=== PATIENT | female | born 1940 | race Caucasian/White ===

== ENCOUNTER 2018-01-18 12:27 | Inpatient (IN) | payer MEDICARE, BC ==
[~2018-01-18] VITALS: Ht 160 cm; Wt 59.4 kg
[~2018-01-18 12:27] MED LIST: ASPIR 8181 M1 PO; CEPHALEXIN 500500 M3 PO; CIPROFLOXIN HC2.5 M1 OPHTHALMIC; IBUPROFEN 800800 M1 PO; MACROBID 100 M100 M1 PO; SYNTHROID100 MC1 PO; ZOCOR20 MG PO
[2018-01-18 12:31] VITALS: BP 143/57
[2018-01-18] MEDS ORDERED: TYLENOL EXTRA500 MG PO (12:38)
[2018-01-18 12:50] LABS: URINE BILIRUBIN NEGATIVE (Negative); URINE BLOOD NEGATIVE (Negative); URINE CLARITY CLEAR; URINE COLOR YELLOW; URINE GLUCOSE-RANDOM NEGATIVE (Negative); URINE KETONES 2+ (Negative); URINE LEUKOCYTES-REFLEX NEGATIVE (Negative); URINE NITRITE-REFLEX NEGATIVE (Negative); URINE PROTEIN NEGATIVE (Negative); URINE UROBILINOGEN 0.2 E.U./dl (0.2-1.0)
[2018-01-18 13:06] LABS: HEMATOCRIT 34.3 % (37.0-47.0); HEMOGLOBIN 11.3 gm/dL (12.0-15.0); MCH 30.2 pg (26.0-34.0); MCHC 32.9 g/dL (28.0-37.0); MCV 91.8 fL (80.0-100.0); MPV 8.3 fl. (7.2-11.1); NUCLEATED RBCS 0 /100WBC; PLATELET COUNT* 489 thou/uL (150-400); RBC 3.73 mil/uL (4.20-5.00); RDW-CV 12.5 % (10.5-14.5); WBC 19.5 thou/uL (4.0-11.0)
[2018-01-18 13:14] LABS: CALCIUM 8.7 mg/dL (8.5-10.1); CREATININE 0.9 mg/dL (0.6-1.3); POTASSIUM 4.3 mmol/L (3.5-5.1)
[2018-01-18 13:19] LABS: ALBUMIN 3.1 g/dL (3.4-5.0); TOTAL BILIRUBIN 0.5 mg/dL (<0.1-1.0); TOTAL PROTEIN 7.5 g/dL (6.4-8.2)
[2018-01-18 13:22] LABS: ABSOLUTE MONOCYTES 0.8 thou/uL (0.0-1.2); ABSOLUTE NEUTROPHILS 17.7 thou/uL (1.6-8.1); PLATELET ESTIMATE ADEQUATE
[2018-01-18 15:16] VITALS: BP 124/59
[2018-01-18 15:45] VITALS: BP 146/75
[2018-01-18 19:45] VITALS: BP 141/56
--- NOTE | 2018-01-18 20:05 | NUR ---
PATIENT ARRIVED FROM ER THIS AFTERNOON. PATIENT SETTLED TO ROOM. HISTORY, ASSESSMENT AND VITALS COMPLETED AND DOCUMENTED. PATIENT HAS HAD COMPLAINTS OF RLQ ABDOMINAL PAIN SINCE ARRIVAL, NO RELIEF WITH MORPHINE AND PARTIAL RELIEF PROVIDED WITH FENTANYL, DR AJ AWARE. PATIENT SEEN BY DR LUO THIS EVENING AND ORDERS FOR IR TO PLACE DRAIN IN AM RECEIVED, NURSING AIRCRAFT ARMAMENT MECHANIC JESS NOTIFIED OF NEED. PATIENT HAS FEVER AND CHILLS THIS EVENING, DR AJ NOTIFIED AND TYLENOL ORDER RECIEVED. PATIENT IS UP STANDBY TO BATHROOM WITH GOOD URINE OUTPUT. IV FLUIDS AND ANTIBIOTICS INFUSING ORDERED. WILL CONTINUE TO MONITOR.
[2018-01-18] MEDS ORDERED: TOPROL XL25 MG PO (20:14)
[2018-01-18 22:56] VITALS: BP 107/47
[2018-01-19] VITALS (11 sets, daily range): BP systolic 97–133; BP diastolic 36–52
--- NOTE | 2018-01-19 04:44 | NUR ---
PATIENT REMAINS ALERT AND ORIENTED X 4 BUT FORGETFUL AND NEEDS REMINDING WITH EACH INTERACTION WHY SHE IS HERE. IVF'S AND ANTIBIOTICS PER ORDERS. RECHECK ON TEMPERATURE DURING THE NIGHT WITHIN NORMAL LIMITS AFTER INTIATION OF ANTIBIOTICS AND TYLENOL. NPO STATUS MAINTAINED EXCEPT SIP OF WATER WITH ORAL MEDS. UP TO BR OR BSC WITH MIN TO CGA. MEDICATED FOR PAIN X 3 OF THIS WRITING TO GOOD EFFECT. CONTINUE TO MONITOR.
[2018-01-19 05:11] LABS: HEMATOCRIT 31.3 % (37.0-47.0); HEMOGLOBIN 10.1 gm/dL (12.0-15.0); MCH 30.1 pg (26.0-34.0); MCHC 32.1 g/dL (28.0-37.0); MCV 93.7 fL (80.0-100.0); MPV 8.8 fl. (7.2-11.1); RBC 3.34 mil/uL (4.20-5.00); RDW-CV 12.5 % (10.5-14.5); WBC 24.2 thou/uL (4.0-11.0)
[2018-01-19 05:13] LABS: ALBUMIN 2.4 g/dL (3.4-5.0); CALCIUM 7.8 mg/dL (8.5-10.1); POTASSIUM 4.2 mmol/L (3.5-5.1); TOTAL BILIRUBIN 0.5 mg/dL (<0.1-1.0); TOTAL PROTEIN 5.7 g/dL (6.4-8.2)
--- NOTE | 2018-01-19 05:49 | NUR ---
ID HERE THIS AM TO SEE PATIENT WITH REQUEST TO NOTIFY SURGERY TO SEE PATIENT PRIOR TO IR FOR ACUTE ABDOMEN. CALL TO DR. LUO AT THIS TIME WITH UPDATES ON PATIENT AND REQUEST FROM ID. DR. LUO TO SEE PATIENT EARLY AM. CONTINUE WITH PLANS FOR IR THIS AM.
[2018-01-19 09:12] LABS: APTT 37.9 Seconds (25.0-31.3); INR 1.2
--- NOTE | 2018-01-19 13:52 | NUR ---
DR LUO CALLED TO FOLLOW UP ON THE PT POST OP. PT PAIN IS A LITTLE BETTER AT THIS TIME BUT SHE IS REQUIRING O2 AT 2L AT THIS TIME AND WE WILL PUT HER ON CONTINUOUS PULSE OX AT THIS TIME. DR LUO STATED THAT THE PT SHOULD BE GIVEN TYLENOL FOR FEVER IT IS TO BE EXPECTED, NOTIFY PROVIDER IF OTHER VS ARE NOT STABLE. WILL PASS OF TO SPUD GRADER. PT RESTING IN BED AT THIS TIME, PAIN MEDS, ABX AND ANTI-NAUSEA PROVIDED AT THIS TIME.
--- NOTE | 2018-01-19 18:30 | NUR ---
DR AJ WANTS PT MONITORED ON TELE. PT WILL GO TO ROOM 233 AT SHIFT CHANGE SO REPORT DOES NOT HAVE TO BE GIVEN TWICE. THIS RN WILL GIVE REPORT TO ONCOMING RN AT THAT TIME. PT PAIN BETTER CONTROLLED AT THIS TIME AND PT IS RESTING. WILL CONTINUE TO ASSESS AND MONITOR.
--- NOTE | 2018-01-19 19:46 | NUR ---
PT TAKEN TO RM 233. REPORT GIVEN TO ION REID. PT DID NOT TOLERATE RA ON WAY UP TO THE UNIT SO PT REMAINS ON 2L PER NC. FRANKLIN NOTIFIED THAT PHYSICIAN STATED INCREASED TEMP SHOULD BE TREATED WITH TYLENOL AND DOES NOT NEED TO HAVE PHYSICIAN NOTIFIED DURING SHIFT UNLESS OTHER VS ALSO ARE DECLINING. PT WENT WITH PT TO NEW ROOM AND PT IS SETTLED. WILL SIGN OFF CARE AT THIS TIME.
[2018-01-20] VITALS (7 sets, daily range): BP systolic 110–161; BP diastolic 43–71
[2018-01-20 05:14] LABS: HEMATOCRIT 30.5 % (37.0-47.0); HEMOGLOBIN 9.9 gm/dL (12.0-15.0); MCH 30.2 pg (26.0-34.0); MCHC 32.4 g/dL (28.0-37.0); MCV 93.1 fL (80.0-100.0); MPV 8.7 fl. (7.2-11.1); RBC 3.27 mil/uL (4.20-5.00); RDW-CV 13.1 % (10.5-14.5)
[2018-01-20 05:40] LABS: ALBUMIN 2.1 g/dL (3.4-5.0); ALKALINE PHOSPHATASE 68 U/L (46-116); ANION GAP 13 mmol/L (7-16); BUN 19 mg/dL (7-18); CALCIUM 7.8 mg/dL (8.5-10.1); CHLORIDE 108 mmol/L (98-107); CO2 20 mmol/L (21-32); CREATININE 0.9 mg/dL (0.6-1.3); GLUCOSE 92 mg/dL (70-99); MAGNESIUM 2.2 mg/dL (1.8-2.4); POTASSIUM 3.8 mmol/L (3.5-5.1); SGOT 22 U/L (15-37); SGPT 12 U/L (30-65); SODIUM 141 mmol/L (136-145); TOTAL BILIRUBIN 0.3 mg/dL (<0.1-1.0); TOTAL PROTEIN 6.2 g/dL (6.4-8.2); TROPONIN-I LEVEL <0.06 ng/mL (<0.06)
--- NOTE | 2018-01-20 06:11 | NUR ---
TRANSFERRED TO RM 233. RECEIVED FROM [facility] NOD. PT A&OX4 BUT FORGETFUL. VSS. PHYSICAL ASSESSMENT COMPLETED AND CHARTED. PT ON O2 VIA NC AT 2L WITH 93% O2 SAT. PT TRACING SR/ST ON TELE. PT COMPLAINED OF POST OP SITE PAIN WITH PAIN SCALE OF 10/10-PAIN MEDS GIVEN PER MAR WITH PARTIAL RELIEF. WITH ABDMINAL DRAIN-NO OUTPUT NOTED. MAINTAINED ON NPO. HOURLY ROUNDING OBSERVED. CALL LIGHT WITHIN REACH.
--- NOTE | 2018-01-20 08:00 | NUR ---
PT RESTING IN BED, APPEARS ALERT O X 3-4 FORGETFUL, ABDOMEN SL DISTENDED, HAS ABDOMINAL DRAIN. C/O ABDOMINAL PAION. HAS IVF, IS NPO, DR PATE HERE TO SEE. HAS ABDOMINAL DRAINWITH BAG, , DOES NOT APPER TO HAVE ANY DRAINAGE
--- NOTE | 2018-01-20 10:28 | EKG ---
[place] [address] ELECTROCARDIOGRAM REPORT Name: Jamie CALLE Room: [place] [address] ADM IN [facility].#: [id number] Admission: 01/18/18 Attend Phys: Henry Tovar, Discharge: Date of : 42 Report #: [id number] THIS REPORT FOR: //name// [facility] ED Test Date: 2018-01-18 Test Time: 12:59:12 Pat Name: Jamie CALLE Department: Room: [facility] Gender: F Kaiawhina Kohanga Reo: Cecilia BURNHAM : 1940 Requested By: Jazmyn Castro Order Number: [id number] MD: Wes Moctezuma Measurements Intervals [place] Rate: 77 P: 67 NC: 133 QRS: 16 QRSD: 115 T: 36 QT: 453 QTc: 513 Interpretive Statements Sinus rhythm Occasional pvc's Nonspecific intraventricular conduction delay Compared to ECG 11/16/2015 23:27:33 Ventricular premature complex(es) now present Electronically Signed On 01-20-2018 10:28:11 CDT by Wes Moctezuma [email or web address] <ELECTRONICALLY SIGNED> By: Wes Moctezuma MD, [facility] 01/20/18 1028 1259 1259 Wes Moctezuma MD, [facility] /EPI
--- NOTE | 2018-01-20 10:55 | CON ---
[address] [address] CONSULTATION Name: Jamie CALLE Room: [place] [address] ADM IN .R.#: [id number] Admission: 01/18/18 Attend Phys: Henry Tovar, Discharge: Date of : 42 Report #: [id number] THIS REPORT FOR: //name// CC: Tyrone Tovar DATE OF SERVICE: 01/19/2018 ATTENDING PHYSICIAN: Dr. Tovar. REASON FOR CONSULTATION: Abdominal abscess. HISTORY OF PRESENT ILLNESS: A 77-year-old white woman admitted through the Emergency Room with right lower abdominal quadrant pain. She does not remember for how long she had this problem. In the Emergency Room, a CT scan of abdomen and pelvis was obtained and she is diagnosed to have an intra-abdominal abscess. The patient has been scheduled to have the intra-abdominal abscess drained by interventional radiologist. PAST MEDICAL HISTORY: The patient is a rather poor historian and she is not very helpful with past medical history. She starts by telling me that she thinks she is 71 years old when actually she is 77. DRUG ALLERGIES: None listed. MEDICATIONS: The patient is on treatment with Flagyl 500 mg IV every 8 hours, Zosyn 3.375 g IV every 8 hours, Levaquin 500 mg IV daily, p.r.n. acetaminophen, fentanyl, levothyroxine 0.1 mg p.o. daily, ondansetron 4 mg IV q.4h. p.r.n., morphine sulfate p.r.n. SOCIAL HISTORY: See H and P. FAMILY HISTORY: See H and P. REVIEW OF SYSTEMS: Essentially noncontributory. PHYSICAL EXAMINATION: GENERAL: A well-developed, mildly ill-appearing woman. VITAL SIGNS: Temperature 102.3 down to 98.5 today, pulse 104-86 per minute, respirations 18, BP 141/56 down to 107/47, O2 saturation 97% on room air. HEENMT: Head normocephalic, atraumatic. Pupils reactive. Mouth: Moist mucous membranes. NECK: Supple, no thyromegaly. LUNGS: Clear to auscultation. BREASTS: Deferred. HEART: S1, S2. [place] [address] CONSULTATION Name: Jamie CALLE Room: [address] IN [facility]#: [id number] Admission: 01/18/18 Attend Phys: Henry Tovar, Discharge: Date of : 42 Report #: [id number] ABDOMEN: Significantly tender throughout with rebound tenderness and decreased bowel sounds. I suspect the patient may be a surgical candidate. PELVIC AND RECTAL: Deferred. EXTREMITIES: No clubbing, cyanosis. NEUROLOGIC: Grossly within normal limits. LABORATORY DATA: Sodium 141, potassium 4.2, CO2 of 21, BUN 15, creatinine 1, glucose 68. Albumin 3.1 g/dL down to 2.4 g/dL today. White blood cell count on admission 19,500, today is 24,200, hemoglobin on admission 11.3 down to 10.1 g/dL today, platelets 413,000. White blood cell count differential revealed 88% segmented neutrophils. Urinalysis revealed 2+ ketones, otherwise negative. MICROBIOLOGY DATA: Blood cultures were obtained and they remain negative at the time of this dictation. RADIOLOGY EVALUATION: CT scan of abdomen and pelvis reveals a right lower abdominal quadrant abscess, possibly related to sigmoid colon diverticulitis. No evidence of appendicitis. ASSESSMENT: 1. Suspect acute abdomen with intra-abdominal abscess, question perforated viscus. 2. Fever. 3. Worsening leukocytosis. 4. Question cognitive impairment. SUGGESTIONS: Recommend continued treatment with Zosyn and Flagyl. Discontinue Levaquin. She needs surgical consultation prior to interventional radiology's intervention. She has got rebound tenderness throughout, which makes me suspect there may be some peritonitis. Dr. Tovar, thank you for requesting my suggestions. <ELECTRONICALLY SIGNED> By: Hermes Robertson MD 01/20/18 1055 0537 1830Hermes Robertson MD /nt
[2018-01-21 04:39] VITALS: BP 145/55
--- NOTE | 2018-01-21 05:14 | NUR ---
ASSUMED CARE OF PT AFTER REPORT AT 1930. PT A&OX2- NOT ORIENTED TO TIME & SITUATION. VSS. PHYSICAL ASSESSMENT COMPLETED AND CHARTED. PT ON NC AT 2L WITH 93% O2 SAT. PT TRACING SR/ST ON TELE. PT UP WITH 1 ASSIST TO COMMODE. PT COMPLAINED OF SOA.LUNG SOUNDS WITH WHEEZES. PT CANNOT VOID-BLADDER SCAN SHOWS [address] TREVINO INFORMED WITH NEW ORDERS. INSERTED STOUT TO DD WITH 750CC OUTPUT. STARTED ON BREATHING TREATMENTS. CXR DONE. PT WITH ABDOMINAL DRAIN WITH NO OUTPUT NOTED.PT C/O OF RIGHT LOWER QUADRANT ABDOMINAL PAIN WITH PAIN SCALE OF 8/10-PAIN MEDS GIVEN PER MAR MAINTAINED ON NPO.CALL LIGHT WITHIN REACH.
[2018-01-21 11:54] VITALS: BP 174/81
--- NOTE | 2018-01-21 16:57 | NUR ---
SW met with pt to complete initial assessment, introduce self, and SW role. Pt lives at home with . Pt also has supportive sons. Pt said she was not feeling well and in pain. Pt might have oxygen needs at dc. SW to continue to follow to assist with safe dc planning.
[2018-01-21 20:00] VITALS: BP 150/41
[2018-01-22] VITALS: BP 134/55
[2018-01-22 04:00] VITALS: BP 134/55
--- NOTE | 2018-01-22 05:18 | NUR ---
ASSUMED PT CARE AT 1930, PT IS A&OX2 PERSON AND TORSTEN, PT IS VERY FORGETFUL, KEEPS ASKING WHY SHE IS HERE. PT IS TRACIGN SNR ON THE MONTIOR, ON 2L NC SATTING MID TO HIGH 90'S. PT HAS A STOUT TO DD, DRAINGING DARK YELLOW URINE. PT IS C/O PAIN TO ABD, PRN PAIN MEDICATIONS GIVEN PER JUL. RLQ DRAIN IN PLACE, VERY LITTLE OUTOUT. BED IN LOW POSITION, CALL LIGHT IN REACH, BED ALARM ON, YELLOW ARM BAND AND SOCKS IN PLACE. HOURLY ROUNDING COMPLETED FOR PT SAFETY.
[2018-01-22 08:38] VITALS: BP 151/64
[2018-01-22 12:17] VITALS: BP 155/63
[2018-01-22 20:00] VITALS: BP 168/61
[2018-01-23] VITALS (7 sets, daily range): BP systolic 131–155; BP diastolic 49–83
--- NOTE | 2018-01-23 00:11 | NUR ---
PATIENT HAVING INCREASED CONFUSION, RESTLESSNESS, AND IMPULSIVENESS. ATTEMPTED TO REORIENT PATIENT MULTIPLE TIMES WITH NO SUCCESS. PATIENT CONTINUES TO BELIEVE SHE IS IN [place] AND HER HAS LEFT HER. ORDERS RECEIVED FOR LORAZEPAM AND ADMINISTERED. PATIENT REMAINS RESTLESS AT THIS TIME. FALL PRECAUTIONS IN PLACE. CALL LIGHT WITHIN REACH.
--- NOTE | 2018-01-23 12:14 | NUR ---
CONTINUE TO FOLLOW, MET WITH PT. SHE IS ALERT AND TALKATIVE TODAY. STATING SHE WANTS TO GET UP AND 'GET MOVING.' HAS THERAPY ORDERS. PT STATES SHE PLANS TO RETURN HOME WITH HER SPOUSE. HASN'T HAD HH BEFORE. UNKNOWN HOW LONG PT WILL HAVE DRAIN, POSSIBLE NEED FOR HH. WILL FOLLOW
--- NOTE | 2018-01-23 19:31 | NUR ---
RECEIVED REPORT FROM LORI LEMON. ASSUMED CARE OF PT AROUND 0730. PT ALERT TO SELF ONLY, VERY CONFUSED, DOES NOT KNOW WHY SHE IS HERE. VSS. O2 SAT 97% ON 3L PER NC. PETROLEUM SAMPLER IN PLACE TRACING SR WITH PAC'S THIS SHIFT WITH NO CHANGES. PT REPORTED RLQ ABDOMINAL PAIN THIS SHIFT THAT WAS MANAGED WITH IV PAIN MEDICATION TO PT RELIEF. DRAIN IN PLACE TO RLQ - 25ML OUT.STOUT IN PLACE TO DD, LIGHT YELLOW URINE DRAINING. PT ON CLD - TOLERATING, BUT HAS NOT HAD MUCH APPETITE FOR ANYTHING TODAY. BELLY SOFT WITH ACTIVE BS IN ALL 4 QUADRANTS. PT BEING TURNED Q2HRS FOR COMFORT. PT ABLE TO GET UP TO BESIDE CHAIR WITH THERAPY THIS SHIFT. AND OTHER FRIENDS AT BEDSIDE OFF AND ON THROUGHOUT SHIFT. IV'S INTACT AND SALINE LOCKED. PT SEEN BY SURGERY THIS SHIFT - PLAN IS TO LEAVE DRAIN IN PLACE AT DISCHARGE FOR 1 WEEK. PT CURRENTLY SLEEPING. FALL PRECAUTIONS IN PLAC. CALL LIGHT IS WITHIN REACH. HOURLY ROUNDING PERFORMED.
[2018-01-24] VITALS: BP 144/49
[2018-01-24 04:00] VITALS: BP 152/64
--- NOTE | 2018-01-24 04:19 | NUR ---
PATIENT PARTIALLY PROGRESSING TOWARDS GOALS: PATIENT REMAINS ORIENTED TO SELF AND PLACE ONLY. PATIENT HAS RESTED A MAJORITY OF THE SHIFT. PATIENT HAD C/O PAIN IN RIGHT LOWER ABD, HOWEVER WOULD BE ASLEEP SHORTLY AFTER REQUESTING PAIN MEDICATION. FALL PRECAUTIONS REMAIN IN PLACE. DRAIN TO RLQ WITH MINIMAL OUTPUT. STOUT TO DD. HOURLY ROUNDING OBSERVED. CALL LIGHT WITHIN REACH
[2018-01-24 04:23] LABS: HEMATOCRIT 34.6 % (37.0-47.0); HEMOGLOBIN 11.3 gm/dL (12.0-15.0); MCH 29.3 pg (26.0-34.0); MCHC 32.8 g/dL (28.0-37.0); MCV 89.3 fL (80.0-100.0); MPV 8.1 fl. (7.2-11.1); NUCLEATED RBCS 0 /100WBC; PLATELET COUNT* 607 thou/uL (150-400); RBC 3.87 mil/uL (4.20-5.00); RDW-CV 12.9 % (10.5-14.5); WBC 14.1 thou/uL (4.0-11.0)
[2018-01-24 04:49] LABS: CALCIUM 7.9 mg/dL (8.5-10.1); CREATININE 0.7 mg/dL (0.6-1.3); POTASSIUM 3.1 mmol/L (3.5-5.1)
[2018-01-24 05:41] LABS: ABSOLUTE EOSINOPHILS 0.4 thou/uL (0.0-0.7); ABSOLUTE MONOCYTES 1.6 thou/uL (0.0-1.2); ABSOLUTE NEUTROPHILS 9.2 thou/uL (1.6-8.1); ANISOCYTOSIS 1+; PLATELET ESTIMATE INCREASED; POIKILOCYTOSIS 1+
[2018-01-24 08:00] VITALS: BP 152/79
[2018-01-24 10:09] VITALS: BP 152/79
--- NOTE | 2018-01-24 10:21 | NUR ---
ASSUMED CARE OF PT AT 0730. PT RESTING IN BED. PT A&0X4, FORGETFUL AND CONFUSED AT TIMES. DEMENTIA NOTED. PT STATES SHE IS READY TO GO HOME. PT TRACING SR ON THE AUTOMATIC DRILL OPERATOR. ON 3L NC SAT UPPER 90'S. PT DENIES ANY PAIN OR SHORTNESS OF BREATH AT THIS TIME. STOUT TO DEPENDENT DRAINAGE. PT UP WITH 1 BSC. PT GOAL FOR TODAY IS TO REPLACE MAGNESIUM AND POTASSIUM PER ELECTROLYTE PROTOCOL, WORK WITH PT AND OT, ADVANCE DIET TOLERATED AND MANAGE PAIN, TITRATE OFF OXYGEN AND REMOVE STOUT CATHETER PRIOR TO DC. POSSIBLE DISCHARGE HOME THIS AFTERNOON. AM ASSESSMENT CHARTED. MEDICATIONS PER JUL. PT REPOSITIONS SELF. HOURLY ROUNDING OBSERVED. BED IN LOW POSITION. CALL LIGHT WITHIN REACH. WILL CONTINUE PLAN OF CARE.
[2018-01-24] MEDS ORDERED: AUGMENTIN 875-1 EACH PO (11:16)
[2018-01-24] MEDS ORDERED: PROTONIX40 M1 PO (11:21)
--- NOTE | 2018-01-24 13:09 | NUR ---
PT HAD FOLLOW UP KUB THIS AM- SHOWING IMPROVING ILEUS. PT DIET ADVANCED AND TOLERATING SOLD FOODS FAIR. PT WORKED WITH PHYSICAL AND OCCUPATIONAL THERAPY TODAY-TOLERATED WELL. ORDERS RECEIVED TO CONSULT REHAB- REHAB ABLE TO ACCEPT PT TODAY. DISCHARGE ORDERS RECEIVED. DISCHARGE INSTRUCTIONS, CARE NOTES, SCRIPTS AND FOLLOW UP APPTS GIVEN TO PT. PT COMMUNICATES UNDERSTANDING OF DISCAHRGE TEACHING. IV'S AND COTTON PICKER REMOVED. STOUT REMOVED. REPORT CALLED TO ION YOUNG. WILL TRANSPORT PT UP TO REHAB VIA WHEELCHAIR, CHART AND ALL BELONGINGS WHEN BED IS READY.
--- NOTE | 2018-01-24 13:14 | NUR ---
Nutrition: Pt assessed for LOS. Noted dementia. Diet advanced to low fiber. Alb 2.1, prealb 7.8. Wt stable, at 131#. Pt was busy with staff at time of attempted visit, 12:40. Appears at low nutritional risk at this time.
--- NOTE | 2018-01-24 13:50 | NUR ---
ORDERS NOTED FOR DC AND REHAB CONSULT. DISCUSSED WITH MEENA/REHAB LIASON. PT HAS BEEN ACCEPTED TO INPT REHAB TODAY. UPDATED PT AND SPOKE WITH SPOUSE OVER THE PHONE. BOTH IN AGREEMENT. ORDERS FAXED TO REHAB. THEY WILL CONTACT NURSE WHEN READY FOR REPORT AND TO ACCEPT PT
--- NOTE | 2018-03-03 10:19 | CON ---
[address] [address] CONSULTATION Name: BALDOMERO CALLE Room: [address] IN M.R.#: [id number] Admission: 01/18/18 Attend Phys: Henry Tovar, Discharge: 01/24/18 Date of : 42 Report #: [id number] THIS REPORT FOR: //name// CC: Tyrone Tovar REASON FOR CONSULTATION: Evaluation and recommendations regarding post-acute rehabilitation after acute hospitalization. Please note, the patient was deemed appropriate for rehabilitation prior to the consultation being received. Therefore, consultation was not completed as it would be redundant to the history and physical as well as the plan of care. <ELECTRONICALLY SIGNED> By: Lena Abel DO 03/03/18 1019 1619 [id number] Abel DO /nt
--- NOTE | 2018-03-06 15:30 | CON ---
[address] [address] CONSULTATION Name: BALDOMERO CALLE Room: [address] IN .R.#: [id number] Admission: 01/18/18 Attend Phys: Henry Tovar, Discharge: 01/24/18 Date of : 42 Report #: [id number] THIS REPORT FOR: //name// CC: Tyrone Tovar CHIEF COMPLAINT: Abdominal pain. HISTORY OF PRESENT ILLNESS: The patient is a 77-year-old pleasant lady who presented with complaints of worsening lower abdominal pain, especially in the right lower quadrant that she has been having for the last few days. She has been having intermittent episodes of lower abdominal pain for the last few months. The patient has had a colonoscopy done about 2-3 years ago and was said to be normal. She has a history of coronary artery disease and has hypertension. PAST MEDICAL HISTORY: History of coronary artery disease, history of stent placements, has [address]; hypertension, hyperlipidemia. PAST SURGICAL HISTORY: None significant. CURRENT MEDICATIONS: 1. Aspirin. 2. Simvastatin. 3. Levothyroxine. 4. Metoprolol. 5. Alprazolam. REVIEW OF SYSTEMS: CONSTITUTIONAL: Has chills. Denies any fever, lethargic. HEENT: She denies any headache or throat pain. CARDIOVASCULAR: Denies any chest pain or palpitation. RESPIRATORY SYSTEM: Denies any shortness of breath on exertion, wheezing or cough. GASTROINTESTINAL: As noted in HPI. GENITOURINARY: Denies any urinary symptoms. SKIN: Denies any ulcers, skin color changes or lesions. NEUROLOGICAL: Denies any numbness or tingling. PHYSICAL EXAMINATION: GENERAL: The patient appears to be in mild discomfort. HEENT: She is normocephalic, atraumatic. She is anicteric. CARDIOVASCULAR: Sounds are regular in rate and rhythm. No murmurs or added sounds. RESPIRATORY: Breath sounds are bilaterally equal and clear to auscultation. ABDOMEN: Soft. There is moderate to severe tenderness in the right lower quadrant and localized rebound tenderness in [place] [address] CONSULTATION Name: BALDOMERO CALLE Room: [address] IN [facility].#: [id number] Admission: 01/18/18 Attend Phys: Henry Tovar, Discharge: 01/24/18 Date of : 41 Report #: [id number] generalized tenderness noted. No guarding. EXTREMITIES: No cyanosis or pedal edema. LABORATORY DATA: White cell count is 19.5, hemoglobin is 7.3. BUN and creatinine are normal. Liver function tests are normal. CT scan of the abdomen and pelvis that was done shows a 6.2 x 6.1 x 6.5 cm abscess in the right lower quadrant region and appears to be related to the sigmoid colon. The appendix appears normal, it is very close to the tubo-ovarian structures, but is less likely to be originating from this. ASSESSMENT AND PLAN: The patient is a 77-year-old female who most likely has a diverticular abscess. It is of significant size. The patient is currently on Levaquin, Flagyl and Zosyn. We will consult Interventional Radiology for IR-guided drainage. The patient will need to be continued on antibiotics. Once her infection is well controlled, she will need an elective surgical resection of her sigmoid colon. I explained to her and her family about the plan of care and they showed understanding. <ELECTRONICALLY SIGNED> By: Surendra Palomo MD 03/06/18 1530 1831 [id number] Palomo MD /nt
== END 2018-01-24 14:10 | DRG 871 ==
LOC: M.ERS 12:27 → M.TBA-ER 14:39 → M.2W 14:39 → M.ORTHSURG 15:48 → M.2W 01-19 19:25
PROVIDERS: Personal Emergency Response Attendant; Radiology Vascular & Interventional Radiology; Surgery; ADMIT Family Medicine
PROC: 0W9G30Z Drainage of Peritoneal Cavity with Drainage Device, Percutaneous Approach (ICD-10-PCS; principal; 2018-01-19)
DX: A41.9 Sepsis, unspecified organism (principal); G93.40 Encephalopathy, unspecified; J18.9 Pneumonia, unspecified organism; K57.80 Diverticulitis of intestine, part unspecified, with perforation and abscess without bleeding; K56.7 Ileus, unspecified; E78.00 Pure hypercholesterolemia, unspecified; E78.5 Hyperlipidemia, unspecified; I25.10 Atherosclerotic heart disease of native coronary artery without angina pectoris; I10 Essential (primary) hypertension; E87.70 Fluid overload, unspecified; E03.9 Hypothyroidism, unspecified; Z79.899 Other long term (current) drug therapy; Z79.82 Long term (current) use of aspirin; Z95.5 Presence of coronary angioplasty implant and graft

== ENCOUNTER 2018-01-24 13:12 | Inpatient (IN) | payer MEDICARE, BC ==
[~2018-01-24] VITALS: Ht 160 cm; Wt 57.2 kg
[~2018-01-24 13:12] MED LIST changes: +AUGMENTIN 875-1 EACH PO; +PROTONIX40 M1 PO; +TOPROL XL25 MG PO; +TYLENOL EXTRA500 MG PO
[2018-01-24 14:10] VITALS: BP 121/64
[2018-01-24 20:00] VITALS: BP 152/65
[2018-01-25 03:57] LABS: HEMATOCRIT 30.9 % (37.0-47.0); HEMOGLOBIN 10.5 gm/dL (12.0-15.0); MCH 30.6 pg (26.0-34.0); MCHC 34.1 g/dL (28.0-37.0); MCV 89.7 fL (80.0-100.0); MPV 7.5 fl. (7.2-11.1); RBC 3.44 mil/uL (4.20-5.00); RDW-CV 12.6 % (10.5-14.5); WBC 13.4 thou/uL (4.0-11.0)
[2018-01-25 04:16] LABS: CALCIUM 7.4 mg/dL (8.5-10.1); CREATININE 0.7 mg/dL (0.6-1.3); POTASSIUM 4.1 mmol/L (3.5-5.1)
[2018-01-25 08:19] VITALS: BP 137/71
[2018-01-25 19:40] VITALS: BP 124/55
[2018-01-26 08:07] VITALS: BP 117/57
[2018-01-26 19:50] VITALS: BP 136/61
[2018-01-27 04:29] LABS: HEMATOCRIT 31.5 % (37.0-47.0); HEMOGLOBIN 10.4 gm/dL (12.0-15.0); MCHC 33.1 g/dL (28.0-37.0); MCV 90.7 fL (80.0-100.0); MPV 8.8 fl. (7.2-11.1); RBC 3.47 mil/uL (4.20-5.00); RDW-CV 12.8 % (10.5-14.5); WBC 22.9 thou/uL (4.0-11.0)
[2018-01-27 04:48] LABS: ALBUMIN 2.2 g/dL (3.4-5.0); CALCIUM 7.7 mg/dL (8.5-10.1); CREATININE 0.6 mg/dL (0.6-1.3); MAGNESIUM 1.8 mg/dL (1.8-2.4); POTASSIUM 4.1 mmol/L (3.5-5.1); TOTAL BILIRUBIN 0.3 mg/dL (<0.1-1.0); TOTAL PROTEIN 5.4 g/dL (6.4-8.2)
[2018-01-27 08:00] VITALS: BP 132/68
[2018-01-27 19:45] VITALS: BP 124/46
[2018-01-28 07:52] LABS: HEMATOCRIT 30.1 % (37.0-47.0); HEMOGLOBIN 9.8 gm/dL (12.0-15.0); MCH 29.8 pg (26.0-34.0); MCHC 32.5 g/dL (28.0-37.0); MCV 91.5 fL (80.0-100.0); MPV 9.3 fl. (7.2-11.1); NUCLEATED RBCS 0 /100WBC; RBC 3.29 mil/uL (4.20-5.00); RDW-CV 12.9 % (10.5-14.5); WBC 16.9 thou/uL (4.0-11.0)
[2018-01-28 08:00] VITALS: BP 122/44
[2018-01-28 08:03] LABS: PLATELET COUNT* 394 thou/uL (150-400)
[2018-01-28 08:05] LABS: ALBUMIN 2.1 g/dL (3.4-5.0); CALCIUM 7.9 mg/dL (8.5-10.1); CREATININE 0.7 mg/dL (0.6-1.3); TOTAL BILIRUBIN 0.3 mg/dL (<0.1-1.0); TOTAL PROTEIN 5.3 g/dL (6.4-8.2)
[2018-01-28 08:35] LABS: ABSOLUTE EOSINOPHILS 0.3 thou/uL (0.0-0.7); ABSOLUTE LYMPHOCYTES 1.7 thou/uL (0.8-5.3); ABSOLUTE MONOCYTES 1.9 thou/uL (0.0-1.2)
[2018-01-28 08:36] LABS: LARGE PLATELETS OCCASIONAL; PLATELET ESTIMATE ADEQUATE; TOXIC GRANULATION Occasional
[2018-01-28 09:00] VITALS: BP 122/44
[2018-01-28 16:40] LABS: URINE BLOOD TRACE (Negative); URINE CLARITY CLEAR; URINE COLOR YELLOW; URINE GLUCOSE-RANDOM NEGATIVE (Negative); URINE KETONES TRACE (Negative); URINE LEUKOCYTES-REFLEX NEGATIVE (Negative); URINE NITRITE-REFLEX NEGATIVE (Negative); URINE PROTEIN 1+ (Negative); URINE SPECIFIC GRAVITY 1.015 (1.005-1.030); URINE UROBILINOGEN 0.2 E.U./dl (0.2-1.0)
[2018-01-28 16:43] LABS: ICTOTEST (BILI CONFIRMATORY) Negative (Negative); URINE BILIRUBIN 1+ (Negative)
[2018-01-28 19:40] VITALS: BP 123/49
[2018-01-29 03:33] LABS: HEMATOCRIT 30.3 % (37.0-47.0); HEMOGLOBIN 9.8 gm/dL (12.0-15.0); MCH 29.5 pg (26.0-34.0); MCHC 32.2 g/dL (28.0-37.0); MCV 91.6 fL (80.0-100.0); MPV 9.3 fl. (7.2-11.1); RBC 3.31 mil/uL (4.20-5.00); RDW-CV 13.1 % (10.5-14.5); WBC 16.4 thou/uL (4.0-11.0)
[2018-01-29 03:46] LABS: ALBUMIN 2.2 g/dL (3.4-5.0); CREATININE 0.7 mg/dL (0.6-1.3); MAGNESIUM 1.8 mg/dL (1.8-2.4); POTASSIUM 3.8 mmol/L (3.5-5.1); TOTAL BILIRUBIN 0.3 mg/dL (<0.1-1.0); TOTAL PROTEIN 6.3 g/dL (6.4-8.2)
[2018-01-29 08:03] VITALS: BP 105/51
[2018-01-29 19:55] VITALS: BP 128/54
[2018-01-30 08:26] VITALS: BP 109/57
[2018-01-30 20:10] VITALS: BP 123/60
[2018-01-31 08:03] VITALS: BP 136/58
[2018-01-31 20:09] VITALS: BP 128/51
[2018-02-01 08:00] VITALS: BP 129/56
[2018-02-01 20:00] VITALS: BP 130/46
[2018-02-02 07:30] VITALS: BP 112/64
[2018-02-02 19:00] VITALS: BP 116/47
[2018-02-03 07:15] VITALS: BP 113/49
[2018-02-03 20:00] VITALS: BP 113/59
[2018-02-04 04:24] LABS: ABSOLUTE BASOPHILS 0.1 thou/uL (0.0-0.2); ABSOLUTE EOSINOPHILS 0.4 thou/uL (0.0-0.7); ABSOLUTE LYMPHOCYTES 1.7 thou/uL (0.8-5.3); ABSOLUTE MONOCYTES 1.5 thou/uL (0.0-1.2); ABSOLUTE NEUTROPHILS 7.2 thou/uL (1.6-8.1); BASOPHILS 0.8 %; EOSINOPHILS 3.6 %; HEMATOCRIT 29.4 % (37.0-47.0); HEMOGLOBIN 9.8 gm/dL (12.0-15.0); LYMPHOCYTES 15.9 %; MCH 30.3 pg (26.0-34.0); MCHC 33.5 g/dL (28.0-37.0); MCV 90.4 fL (80.0-100.0); MONOCYTES 13.6 %; MPV 9.1 fl. (7.2-11.1); NUCLEATED RBCS 0 /100WBC; PLATELET COUNT* 657 thou/uL (150-400); POLYS 66.1 %; RBC 3.25 mil/uL (4.20-5.00); RDW-CV 13.7 % (10.5-14.5); WBC 10.9 thou/uL (4.0-11.0)
[2018-02-04 04:44] LABS: ALBUMIN 2.4 g/dL (3.4-5.0); CALCIUM 8.4 mg/dL (8.5-10.1); CREATININE 0.8 mg/dL (0.6-1.3); MAGNESIUM 1.9 mg/dL (1.8-2.4); POTASSIUM 4.6 mmol/L (3.5-5.1); TOTAL BILIRUBIN 0.2 mg/dL (<0.1-1.0); TOTAL PROTEIN 6.2 g/dL (6.4-8.2)
[2018-02-04 20:00] VITALS: BP 125/63
[2018-02-05 10:00] VITALS: BP 113/69
[2018-02-05 11:27] LABS: ALBUMIN 2.6 g/dL (3.4-5.0); CALCIUM 8.3 mg/dL (8.5-10.1); CREATININE 0.7 mg/dL (0.6-1.3); POTASSIUM 4.3 mmol/L (3.5-5.1); TOTAL BILIRUBIN 0.2 mg/dL (<0.1-1.0); TOTAL PROTEIN 6.4 g/dL (6.4-8.2)
[2018-02-05 12:04] LABS: ABSOLUTE BASOPHILS 0.1 thou/uL (0.0-0.2); ABSOLUTE EOSINOPHILS 0.2 thou/uL (0.0-0.7); ABSOLUTE LYMPHOCYTES 1.5 thou/uL (0.8-5.3); ABSOLUTE MONOCYTES 1.1 thou/uL (0.0-1.2); ABSOLUTE NEUTROPHILS 7.3 thou/uL (1.6-8.1); EOSINOPHILS 1.5 %; HEMATOCRIT 31.3 % (37.0-47.0); HEMOGLOBIN 10.5 gm/dL (12.0-15.0); LYMPHOCYTES 14.4 %; MCH 30.3 pg (26.0-34.0); MCHC 33.7 g/dL (28.0-37.0); MCV 90.1 fL (80.0-100.0); NUCLEATED RBCS 0 /100WBC; POLYS 72.1 %; RBC 3.48 mil/uL (4.20-5.00); RDW-CV 13.6 % (10.5-14.5); WBC 10.2 thou/uL (4.0-11.0)
[2018-02-05 12:08] LABS: PLATELET COUNT* 738 thou/uL (150-400)
[2018-02-05 20:00] VITALS: BP 108/55
[2018-02-06 07:30] VITALS: BP 119/53
[2018-02-06 11:59] LABS: URINE BILIRUBIN NEGATIVE (Negative); URINE BLOOD NEGATIVE (Negative); URINE CLARITY CLEAR; URINE COLOR STRAW; URINE GLUCOSE-RANDOM NEGATIVE (Negative); URINE KETONES TRACE (Negative); URINE LEUKOCYTES-REFLEX TRACE (Negative); URINE NITRITE-REFLEX NEGATIVE (Negative); URINE PROTEIN 1+ (Negative); URINE UROBILINOGEN 0.2 E.U./dl (0.2-1.0)
[2018-02-06 12:11] LABS: SQUAMOUS 4-10 Moderate /LPF (0-3); URINE WBC-REFLEX 0-5 Rare /HPF (0-5)
[2018-02-06 12:12] LABS: BACTERIA-REFLEX 1-9 Few /HPF (None Seen); MUCUS >6 Heavy strn/LPF (None Seen); URINE RBC 0-2 Rare /HPF (0-2)
[2018-02-06 12:16] LABS: CRYSTALS None Seen /LPF (None Seen); HYALINE CASTS 4-10 Moderate /LPF (None Seen)
--- NOTE | 2018-02-06 13:19 | H ---
[address] [address] HISTORY AND PHYSICAL Name: BALDOMERO CALLE Room: [address] IN [facility].#: [id number] Admission: 01/24/18 Attend Phys: Lena Abel, DO Discharge: Date of : 42 Report #: [id number] THIS REPORT FOR: //name// CC: Tyrone Abel DATE OF SERVICE: 01/24/2018 HISTORY OF PRESENT ILLNESS: The patient was admitted to inpatient rehabilitation to facilitate safe discharge home, status post-acute hospitalization RLQabcess, post drainage and encephalopathy. There have been no significant changes since the preadmission screening. Previous level of function was independent to modified independent with activities of daily living. Current level of function is minimum to moderate assistance depending on time of day, therapy. Wound care and daily medical needs are noted. Currently has a lew in place. Lives with her in an accessible house with 1 ELBA. ESTIMATED LENGTH OF STAY: 14-16 days with discharge disposition to the home setting with supportive family and an accessible home. PMH: HTN HLD DEMENTIA HYPOTHYROID PSH: cardiac stents Allergies: NKDA Medications: Reviewed reconciled and available in the [facility] Social History: social alochol, no tobacco or drug use ROS: 14 pt ROS is reviewed and negative except as mentioned in HPI Physical Exam: AO NAD VSS CV RRR Pulm symmetric inhalation ABD: RQ drain noted Neuro: 5/5 BLUE, BLLE MSK: no CCE [facility] [address] [place] [address] HISTORY AND PHYSICAL Name: BALDOMERO CALLE Room: 323-D ADM IN .R.#: [id number] Admission: 01/24/18 Attend Phys: Lena Abel DO Discharge: Date of : 42 Report #: [id number] Assessment: Debility with alterations in ADLS s/p drainage of RLQ abdominal abscess Acute Encephalopathy Plan: Admit to acute inpt rehab HP/POC completed HMS, PT, OT, NAMED ACCOUNT EXECUTIVE and CM to evaluate Team weekly <ELECTRONICALLY SIGNED> By: Lena Abel DO 02/06/18 1319 1129 [id number] Abel DO /nt
[2018-02-06 20:09] VITALS: BP 110/57
[2018-02-07 04:09] VITALS: BP 110/57
[2018-02-07 05:03] LABS: HEMATOCRIT 27.5 % (37.0-47.0); HEMOGLOBIN 9.3 gm/dL (12.0-15.0); MCH 30.6 pg (26.0-34.0); MCHC 33.9 g/dL (28.0-37.0); MCV 90.3 fL (80.0-100.0); MPV 8.6 fl. (7.2-11.1); RBC 3.04 mil/uL (4.20-5.00); RDW-CV 13.8 % (10.5-14.5); WBC 8.6 thou/uL (4.0-11.0)
[2018-02-07 05:42] LABS: ALBUMIN 2.5 g/dL (3.4-5.0); CREATININE 0.7 mg/dL (0.6-1.3); POTASSIUM 4.3 mmol/L (3.5-5.1); TOTAL BILIRUBIN 0.2 mg/dL (<0.1-1.0); TOTAL PROTEIN 5.9 g/dL (6.4-8.2)
[2018-02-07 08:24] VITALS: BP 102/58
[2018-02-07 20:00] VITALS: BP 102/41
[2018-02-08 08:00] VITALS: BP 112/57
[2018-02-08 20:20] VITALS: BP 125/56
[2018-02-09 08:30] VITALS: BP 109/49
[2018-02-09 20:00] VITALS: BP 121/46
[2018-02-10 03:07] VITALS: BP 110/57
[2018-02-10 04:49] LABS: HEMATOCRIT 28.2 % (37.0-47.0); HEMOGLOBIN 9.4 gm/dL (12.0-15.0); MCH 30.3 pg (26.0-34.0); MCHC 33.3 g/dL (28.0-37.0); MCV 90.9 fL (80.0-100.0); RBC 3.1 mil/uL (4.20-5.00); WBC 8.4 thou/uL (4.0-11.0)
[2018-02-10 05:08] LABS: CALCIUM 8.8 mg/dL (8.5-10.1); CREATININE 0.7 mg/dL (0.6-1.3); MAGNESIUM 2.2 mg/dL (1.8-2.4); POTASSIUM 4.4 mmol/L (3.5-5.1)
[2018-02-10 07:30] VITALS: BP 116/58
[2018-02-10 20:00] VITALS: BP 98/45
[2018-02-11 07:30] VITALS: BP 114/53
[2018-02-11 20:13] VITALS: BP 113/52
[2018-02-12 08:14] VITALS: BP 114/87
[2018-02-12 08:30] VITALS: BP 114/87
[2018-02-12] MEDS ORDERED: FLOMAX0.4 MG PO (11:56)
[2018-02-12] MEDS ORDERED: MELATONIN5 M1 PO (11:58)
[2018-02-12] MEDS ORDERED: METRO IV 5500 MG/100 IV (12:00)
[2018-02-12] MEDS ORDERED: CEFTRIAXON1 GM/50 M1 IV (12:01)
[2018-02-12] MEDS ORDERED: TRAMADOL 50 MG50 MG PO (12:07)
--- NOTE | 2018-03-03 10:19 | D ---
[facility] [address] [place] [address] DISCHARGE SUMMARY Name: BALDOMERO CALLE Room: [address] IN M.R.#: [id number] Admission: 01/24/18 Attend Phys: Lena Abel DO Discharge: 02/12/18 Date of : 42 Report #: [id number] THIS REPORT FOR: //name// CC: Tyrone Abel DISCHARGE DIAGNOSES: Debility, sepsis, encephalopathy and known abscess. DISCHARGE DISPOSITION: To acute medical floor for further evaluation, drainage of the abscess, continued IV antibiotics and possible colostomy. Rehabilitation potential is good. Full weightbearing. She will maintain the same diet. We will follow her during her acute stay. Should she need further rehabilitation, we will follow up on that. MEDICATIONS: Reviewed, reconciled by myself and are available in the MAR. DISCHARGE PHYSICAL EXAMINATION: GENERAL: Alert, oriented, no apparent distress. VITAL SIGNS: Reviewed and are stable. HEENT: Head atraumatic, normocephalic. Pupils equal, round, reactive. ABDOMEN: Soft, nontender, nondistended. NEUROLOGIC: Cranial nerves 2-12 are grossly intact with no focal neuro deficits, 5/5 strength in bilateral upper and lower extremities. SKIN: Warm and dry. No rashes or lesions noted. <ELECTRONICALLY SIGNED> By: Lena Abel DO 03/03/18 1019 1308 [id number] Abel DO /kev
== END 2018-02-12 13:40 | disposition home health service (06) | DRG 70 ==
LOC: M.REH 13:12
PROVIDERS: Family Medicine; Internal Medicine; Specialist; ADMIT Physical Medicine & Rehabilitation
PROC: 02HV33Z Insertion of Infusion Device into Superior Vena Cava, Percutaneous Approach (ICD-10-PCS; principal; 2018-02-07)
DX: G93.40 Encephalopathy, unspecified (principal); A41.9 Sepsis, unspecified organism; K57.00 Diverticulitis of small intestine with perforation and abscess without bleeding; K56.7 Ileus, unspecified; N13.30 Unspecified hydronephrosis; E46 Unspecified protein-calorie malnutrition; R53.81 Other malaise; E78.5 Hyperlipidemia, unspecified; E03.9 Hypothyroidism, unspecified; F03.90 Unspecified dementia, unspecified severity, without behavioral disturbance, psychotic disturbance, mood disturbance, and anxiety; K57.50 Diverticulosis of both small and large intestine without perforation or abscess without bleeding; I10 Essential (primary) hypertension; I25.10 Atherosclerotic heart disease of native coronary artery without angina pectoris; E78.00 Pure hypercholesterolemia, unspecified; D64.9 Anemia, unspecified; Z95.5 Presence of coronary angioplasty implant and graft; Z79.899 Other long term (current) drug therapy; Z79.82 Long term (current) use of aspirin; Z87.891 Personal history of nicotine dependence; Z68.22 Body mass index [BMI] 22.0-22.9, adult

== ENCOUNTER 2018-02-12 11:09 | Inpatient (IN) | payer MEDICARE, BC ==
[~2018-02-12] VITALS: Ht 157.5 cm; Wt 56.2 kg
--- NOTE | ~2018-02-12 | OP ---
[address] [address] OPERATIVE REPORT Name: BALDOMERO CALLE Room: [address] IN .R.#: [id number] Admission: 02/12/18 Attend Phys: Lyric Reed MD Discharge: Date of : 42 Report #: [id number] THIS REPORT FOR: //name// CC: Tyrone Reed DATE OF SERVICE: 02/13/2018 PREOPERATIVE DIAGNOSES: 1. Diverticulitis with abscess. 2. Right hydronephrosis. POSTOPERATIVE DIAGNOSES: 1. Diverticulitis with abscess. 2. Right hydronephrosis. PROCEDURES PERFORMED: 1. Cystoscopy with bilateral retrograde pyelograms. 2. Bilateral 6 x 24 double-J ureteral stent placement. SURGEON: Rafi Calle MD. INDICATION FOR PROCEDURE: The patient is a 77-year-old female with a history of diverticulitis and subsequent right-sided pelvic phlegmon versus abscess. CT imaging demonstrated the presence of associated grhj-jy-tkpwksaw right hydronephrosis. She presents today for exploratory laparotomy and drainage and/or excision of her pelvic mass. Protective ureteral stents were requested by Dr. Palomo with General Surgery. The risks of the procedure including the risks of bleeding, infection, damage to surrounding structures, need for additional procedures, and anesthetic risks were discussed with the patient and she wished to proceed. PROCEDURE IN DETAIL: The risks and benefits of surgery were discussed with the patient and she wished to proceed. Informed consent was obtained and the patient was transferred to the operating room where she was laid supine on the operating room table. After the induction of adequate general endotracheal anesthesia and the administration of appropriate preoperative antibiotics, the patient's legs were placed in a modified dorsal lithotomy position taking care to pad all pressure points and avoid any hyperextension or hyperflexion of her joints. The patient's genitalia were prepped and draped in the usual sterile fashion. A timeout was then performed to ensure correct patient and procedure. At this time, a 21-Lao cystoscope sheath with a 30-degree lens was lubricated and advanced under direct vision and irrigation through the urethra and into the bladder. Cystoscope was disarticulated and the bladder was drained. Cystoscopy was performed under direct vision and irrigation. The patient's ureteral orifices were found to be [place] [address] OPERATIVE REPORT Name: BALDOMERO CALLE Room: [address]#: [id number] Admission: 02/12/18 Attend Phys: Lyric Reed MD Discharge: Date of : 41 Report #: [id number] panendoscopy revealed no gross bladder wall pathology. There were no papillary bladder tumors or suspicious mucosal lesions identified. At this time, a Pollack catheter was placed in the patient's right ureteral orifice and a right retrograde pyelogram was performed. Contrast could be seen filling a strictured segment of distal ureter with mid and proximal mild to moderate hydroureteronephrosis. This is consistent with CT finding of the right-sided pelvic phlegmon versus abscess. A 0.038 ZIPwire was advanced into the right ureter and up into the kidney under fluoroscopic guidance. A 6 x 24 double-J ureteral stent was advanced over the wire and into position. The wire was withdrawn deploying the stent. A good coil of the stent was identified within the right renal pelvis under fluoroscopy and a good coil of the stent was identified within the bladder under direct vision with the cystoscope. Attention was then paid to the left side. The 5-Lao Pollack catheter was placed in the patient's left ureteral orifice and a left retrograde pyelogram was performed. Contrast could be seen filling the distal, mid, and proximal left ureter as well as the left collecting system. There were no filling defects or signs of obstruction on left retrograde pyelogram. A 0.038 ZIPwire was advanced up the left ureter until it was seen to coil within the kidney under fluoroscopy. A 6 x 24 double-J ureteral stent was then advanced over the wire and into position. The wire was withdrawn, deploying the stent. A good coil of the stent was identified within the left renal pelvis under fluoroscopy and a good coil of the stent was identified within the bladder under direct vision with the cystoscope. The cystoscope was removed and a 16-Lao Cosme catheter was lubricated and advanced into the bladder without difficulty. The catheter balloon was inflated with 10 mL of sterile water and placed to gravity drainage. The patient was then returned to supine position and turned over the care to anesthesia in preparation for the general surgical portion of the procedure. This concludes the urologic portion of the procedure. The patient tolerated the procedure well. COMPLICATIONS: None. ESTIMATED BLOOD LOSS: None. IV FLUIDS: Crystalloid. DRAINS: 1. Bilateral 6 x 24 double-J ureteral stent. 2. 16-Lao Cosme catheter per urethra. SPECIMENS: None. FINDINGS: 1. No gross bladder wall pathology. No papillary bladder tumors or suspicious mucosal lesions. 2. Right retrograde pyelogram demonstrating a distal ureteral narrowing [address] [address] OPERATIVE REPORT Name: ALVABALDOMERO DONNELLY Room: [address] IN [facility]#: [id number] Admission: 02/12/18 Attend Phys: Lyric Reed MD Discharge: Date of : 42 Report #: [id number] consistent with external compression from the pelvic phlegmon versus abscess. Mid and proximal hydroureteronephrosis noted. 3. Right 6 x 24 double-J ureteral stent in good position by fluoroscopy and direct vision. 4. Normal left retrograde pyelogram. 5. Left 6 x 24 double-J ureteral stent in good position by fluoroscopy and direct vision. By: [id number] Calle MD /nt
--- NOTE | ~2018-02-12 | EKG ---
[place] [address] ELECTROCARDIOGRAM REPORT Name: BALDOMERO CALLE Room: [address] ADM IN M.R.#: [id number] Admission: 02/12/18 Attend Phys: Lyric Reed MD Discharge: Date of : 42 Report #: [id number] THIS REPORT FOR: //name// [facility] Test Date: 2018-02-13 Test Time: 05:32:22 Pat Name: BALDOMERO CALLE Department: Room: [address] Gender: F Associate Vice President: : 1940 Requested By: Lyric Reed Order Number: [id number] Reading MD: Measurements Intervals [place] Rate: 82 P: 39 ND: 148 QRS: 40 QRSD: 101 T: 65 QT: 399 QTc: 466 Interpretive Statements Sinus rhythm Atrial premature complex Anteroseptal infarct, age indeterminate Compared to ECG 01/18/2018 12:59:12 Atrial premature complex(es) now present Myocardial infarct finding now present Intraventricular conduction delay no longer present [email or web address] By: 0532 0532 Epiphany Epiphany, /EPI
[2018-02-12] MEDS ORDERED: FLOMAX0.4 MG PO (11:56)
[2018-02-12] MEDS ORDERED: MELATONIN5 M1 PO (11:58)
[2018-02-12] MEDS ORDERED: METRO IV 5500 MG/100 IV (12:00)
[2018-02-12] MEDS ORDERED: CEFTRIAXON1 GM/50 M1 IV (12:01)
[2018-02-12] MEDS ORDERED: TRAMADOL 50 MG50 MG PO (12:07)
[2018-02-12 14:46] VITALS: BP 102/42
[2018-02-12 20:00] VITALS: BP 117/39
[2018-02-12 23:45] VITALS: BP 109/55
[2018-02-13 04:00] VITALS: BP 117/58
[2018-02-13 04:05] LABS: HEMATOCRIT 30.1 % (37.0-47.0); HEMOGLOBIN 9.9 gm/dL (12.0-15.0); MCH 30.1 pg (26.0-34.0); MCV 91.4 fL (80.0-100.0); MPV 8.7 fl. (7.2-11.1); RBC 3.3 mil/uL (4.20-5.00); RDW-CV 14.5 % (10.5-14.5); WBC 7.4 thou/uL (4.0-11.0)
[2018-02-13 04:15] LABS: INR 1.1; PROTIME 10.8 Seconds (9.20-11.50)
[2018-02-13 05:05] VITALS: BP 109/55; BP 117/58
[2018-02-13 05:15] LABS: ALBUMIN 2.9 g/dL (3.4-5.0); CALCIUM 8.4 mg/dL (8.5-10.1); CREATININE 0.6 mg/dL (0.6-1.3); POTASSIUM 3.9 mmol/L (3.5-5.1); TOTAL BILIRUBIN 0.2 mg/dL (<0.1-1.0); TOTAL PROTEIN 6.3 g/dL (6.4-8.2)
[2018-02-13 10:29] VITALS: BP 117/58
[2018-02-13 15:43] VITALS: BP 117/63
--- NOTE | 2018-02-13 16:35 | EKG ---
[place] [address] ELECTROCARDIOGRAM REPORT Name: BALDOMERO CALLE Room: [address] ADM IN M.R.#: [id number] Admission: 02/12/18 Attend Phys: Lyric Reed MD Discharge: Date of : 42 Report #: [id number] THIS REPORT FOR: //name// [facility] Test Date: 2018-02-13 Test Time: 05:32:22 Pat Name: BALDOMERO CALLE Department: Room: [address] Gender: F Corporate Development Manager: : 1940 Requested By: Lyric Reed Order Number: [id number] Reading MD: Wes Moctezuma Measurements Intervals [place] Rate: 82 P: 39 CO: 148 QRS: 40 QRSD: 101 T: 65 QT: 399 QTc: 466 Interpretive Statements Sinus rhythm Atrial premature complex Anteroseptal infarct possible, age indeterminate Compared to ECG 01/18/2018 12:59:12 Atrial premature complex(es) now present Myocardial infarct finding now present Electronically Signed On 02-13-2018 16:35:38 CDT by Wes Moctezuma [email or web address] <ELECTRONICALLY SIGNED> By: Wes Moctezuma MD, FACC 02/13/18 1635 0532 0532 Wes Moctezuma MD, [facility] /EPI
--- NOTE | 2018-02-13 16:41 | EKG ---
[place] [address] ELECTROCARDIOGRAM REPORT Name: BALDOMERO CALLE Room: [address] ADM IN M.R.#: [id number] Admission: 02/12/18 Attend Phys: Lyric Reed MD Discharge: Date of : 42 Report #: [id number] THIS REPORT FOR: //name// [facility] Test Date: 2018-02-13 Test Time: 13:31:01 Pat Name: BALDOMERO CALLE Department: Room: [facility] Gender: F Property Management Supervisor: : 1940 Requested By: Ulysses Ivey Order Number: [id number] Navi MD: Wes Moctezuma Measurements Intervals [place] Rate: 93 P: 63 LA: 137 QRS: 43 QRSD: 97 T: 61 QT: 413 QTc: 514 Interpretive Statements Sinus rhythm Multiform ventricular premature complexes Nonspecific T abnormalities, lateral leads Prolonged QT interval Compared to ECG 01/18/2018 12:59:12 Ventricular premature complex(es) now present T-wave abnormality now present Prolonged QT interval now present Electronically Signed On 02-13-2018 16:41:33 CDT by Wes Moctezuma [email or web address] <ELECTRONICALLY SIGNED> By: Wes Moctezuma MD, [facility] 02/13/18 1641 1331 1331 Wes Moctezuma MD, [facility] /EPI
[2018-02-13 20:00] VITALS: BP 133/70
[2018-02-14] VITALS: BP 137/75
[2018-02-14 02:03] LABS: MCH 29.7 pg (26.0-34.0); MCHC 32.3 g/dL (28.0-37.0); MCV 92.1 fL (80.0-100.0); MPV 9.2 fl. (7.2-11.1); NUCLEATED RBCS 0 /100WBC; RBC 3.69 mil/uL (4.20-5.00); RDW-CV 15.4 % (10.5-14.5); WBC 12.2 thou/uL (4.0-11.0)
[2018-02-14 02:16] LABS: PLATELET COUNT* 537 thou/uL (150-400)
[2018-02-14 02:19] LABS: CALCIUM 7.9 mg/dL (8.5-10.1); CREATININE 0.8 mg/dL (0.6-1.3); POTASSIUM 4.3 mmol/L (3.5-5.1)
[2018-02-14 02:20] LABS: PHOSPHORUS* 3.3 mg/dL (2.5-4.9)
[2018-02-14 02:21] LABS: MAGNESIUM 1.7 mg/dL (1.8-2.4)
[2018-02-14 04:00] VITALS: BP 135/73
[2018-02-14 04:07] LABS: ABSOLUTE LYMPHOCYTES 0.6 thou/uL (0.8-5.3); ABSOLUTE MONOCYTES 1.5 thou/uL (0.0-1.2); ABSOLUTE NEUTROPHILS 10.1 thou/uL (1.6-8.1); ANISOCYTOSIS Occasional; PLATELET ESTIMATE INCREASED; TOXIC GRANULATION 2+
--- NOTE | 2018-02-14 10:56 | EKG ---
[place] [address] ELECTROCARDIOGRAM REPORT Name: BALDOMERO CALLE Room: [address] ADM IN M.R.#: [id number] Admission: 02/12/18 Attend Phys: Lyric Reed MD Discharge: Date of : 42 Report #: [id number] THIS REPORT FOR: //name// [facility] Test Date: 2018-02-14 Test Time: 01:25:29 Pat Name: BALDOMERO CALLE Department: Room: [address] Gender: F Clinical Nursing Instructor: WLEPKERYOVANI : 1940 Requested By: Lyric Reed Order Number: [id number] Navi MD: Wes Moctezuma Measurements Intervals [place] Rate: 183 P: 0 NC: QRS: 46 QRSD: 88 T: 193 QT: 254 QTc: 444 Interpretive Statements Supraventricular tachycardia Borderline low voltage, extremity leads Repolarization abnormality, prob rate related Baseline wander in lead(s) II Compared to ECG 02/13/2018 13:31:01 Early repolarization now present Sinus rhythm no longer present Ventricular premature complex(es) no longer present T-wave abnormality no longer present Prolonged QT interval no longer present Electronically Signed On 02-14-2018 10:55:55 CDT by Wes Moctezuma [email or web address] <ELECTRONICALLY SIGNED> By: Wes Moctezuma MD, [facility] 02/14/18 1055 4 4 Wes Moctezuma MD, [facility] /EPI
--- NOTE | 2018-02-14 10:57 | EKG ---
[place] [address] ELECTROCARDIOGRAM REPORT Name: BALDOMERO CALLE Room: [address] ADM IN M.R.#: [id number] Admission: 02/12/18 Attend Phys: Lyric Reed MD Discharge: Date of : 42 Report #: [id number] THIS REPORT FOR: //name// [facility] Test Date: 2018-02-14 Test Time: 01:47:43 Pat Name: BALDOMERO CALLE Department: Room: [address] Gender: F Administrative Intern: KRYSTYNA : 1940 Requested By: Lyric Reed Order Number: [id number] Reading MD: Wes Moctezuma Measurements Intervals [place] Rate: 131 P: 27 MN: 118 QRS: 26 QRSD: 92 T: QT: 326 QTc: 482 Interpretive Statements Sinus tachycardia Ventricular premature complex Borderline low voltage, extremity leads Minimal ST depression, anterolateral leads Compared to ECG 02/13/2018 13:31:01 svt no longer noted ST (T wave) deviation now present T-wave abnormality no longer present Prolonged QT interval no longer present Electronically Signed On 02-14-2018 10:56:58 CDT by Wes Moctezuma [email or web address] <ELECTRONICALLY SIGNED> By: Wes Moctezuma MD, [facility] 02/14/18 1056 0147 0147 Wes Moctezuma MD, FAC /EPI
[2018-02-14 12:00] VITALS: BP 135/87
--- NOTE | 2018-02-14 13:33 | 2DMMODE ---
[place] [address] 2 D/M-MODE ECHOCARDIOGRAM Name: BALDOMERO CALLE Room: [address] IN [facility].#: [id number] Admission: 02/12/18 Attend Phys: Lyric Reed, Discharge: Date of : 42 Date of Service: 02/14/18 1333 Report #: [id number] THIS REPORT FOR: //name// APPROVED REPORT Study performed: 02/14/2018 09:30:36 EXAM: Comprehensive 2D, Doppler, and color-flow Echocardiogram Patient Location: Bedside BSA: 1.64 HR: 123 bpm BP: 135/73 mmHg Other Information Study Quality: Fair Indications Sepsis Tachycardia 2D Dimensions IVSd: 13.36 (7-11mm) LVOT Diam: 22.24 (18-24mm) LVDd: 49.48 mm PWd: 10.33 (7-11mm) Ascending Ao: 31.37 (22-36mm) LVDs: 45.68 (25-40mm) Aortic Root: 25.48 mm Volumes Left Atrial Volume (Systole) LA ESV Index: 21.90 mL/m2 Aortic Valve AoV Peak Kiran.: 1.25 m/s AO Peak Gr.: 6.22 mmHg LVOT Max P.96 mmHg AO Mean Gr.: 4.01 mmHg LVOT Mean P.68 mmHg LVOT Max V: 0.86 m/s AO V2 VTI: 20.92 cm LVOT Mean V: 0.61 m/s SURESH (VTI): 2.54 cm2 LVOT V1 VTI: 13.68 cm Mitral Valve E/A Ratio: 3.88 MV Decel. Time: 100.43 ms MV E Max Kiran.: 1.23 m/s MV PHT: 29.12 [place] [address] 2 D/M-MODE ECHOCARDIOGRAM Name: BALDOMERO CALLE Room: [address] IN [facility].#: [id number] Admission: 02/12/18 Attend Phys: Lyric Reed, Discharge: Date of : 42 Date of Service: 02/14/18 1333 Report #: [id number] MVA (PHT): 7.55 cm2 TDI E/Lateral E': 5.86 E/Medial E': 5.13 Medial E' Kiran.: 0.24 m/s Lateral E' Kiran.: 0.21 m/s Pulmonary Valve PV Peak Kiran.: 0.95 m/s PV Peak Gr.: 3.58 mmHg Tricuspid Valve RAP Estimate: 5.00 mmHg TR Peak Gr.: 22.49 mmHg RVSP: 27.49 mmHg PA Pressure: 27.49 mmHg Left Ventricle Left ventricle is moderately dilated. There is diffuse hypokinesis of left ventricular wall motion There is normal left ventricular wall thickness. Left ventricular ejection fraction is severely decreased. LVEF is 30%. Grade I - abnormal relaxation pattern. Right Ventricle The right ventricle is normal size. The right ventricular systolic function is normal. Atria The left atrium size is normal. The right atrium size is normal. Aortic Valve The aortic valve is normal in structure. No aortic regurgitation is present. There is no aortic valvular stenosis. Mitral Valve The mitral valve is normal in structure. Mild mitral regurgitation. No evidence of mitral valve stenosis. Tricuspid Valve The tricuspid valve is normal in structure. Mild tricuspid regurgitation. Pulmonic Valve The pulmonary valve is normal in structure. Trace pulmonic regurgitation[place] [address] 2 D/M-MODE ECHOCARDIOGRAM Name: BALDOMERO CALLE Room: [address] IN [facility]#: [id number] Admission: 02/12/18 Attend Phys: Lyric Reed, Discharge: Date of : 42 Date of Service: 02/14/18 1333 Report #: [id number] The aortic root is normal in size. IVC is normal in size and collapses >50% with inspiration. Pericardium There is no pericardial effusion. <Conclusion> Left ventricle is moderately dilated. There is normal left ventricular wall thickness. Left ventricular ejection fraction is severely decreased. LVEF is 30%. Grade I - abnormal relaxation pattern. The right ventricle is normal size. The left atrium size is normal. The aortic valve is normal in structure. The mitral valve is normal in structure. Mild mitral regurgitation. The tricuspid valve is normal in structure. Mild tricuspid regurgitation. IVC is normal in size and collapses >50% with inspiration. There is no pericardial effusion. There is diffuse hypokinesis of left ventricular wall motion <ELECTRONICALLY SIGNED> By: Wes Moctezuma MD, [facility] 02/14/18 1333 1333 133 Wes Moctezuma MD, FAC /INF
[2018-02-14 16:06] VITALS: BP 114/64
[2018-02-14 19:45] VITALS: BP 120/63
[2018-02-15] VITALS: BP 100/58
[2018-02-15 04:00] VITALS: BP 99/59
[2018-02-15 06:23] LABS: URINE BILIRUBIN NEGATIVE (Negative); URINE BLOOD 3+ (Negative); URINE CLARITY SL CLOUDY; URINE COLOR DARK YELLOW; URINE GLUCOSE-RANDOM NEGATIVE (Negative); URINE KETONES NEGATIVE (Negative); URINE LEUKOCYTES 1+ (Negative); URINE NITRITE NEGATIVE (Negative); URINE PROTEIN 2+ (Negative); URINE UROBILINOGEN 0.2 E.U./dl (0.2-1.0)
[2018-02-15 06:51] LABS: CASTS None Seen /LPF (None Seen); SQUAMOUS 4-10 Moderate /LPF (0-3); URINE RBC >20 Many /HPF (0-2)
[2018-02-15 06:53] LABS: CRYSTALS None Seen /LPF (None Seen); URINE WBC 6-15 Few /HPF (0-5)
[2018-02-15 08:00] VITALS: BP 110/62
[2018-02-15 11:41] VITALS: BP 96/54
[2018-02-15 15:34] VITALS: BP 104/48
[2018-02-15 20:34] VITALS: BP 98/56
[2018-02-16] VITALS (7 sets, daily range): BP systolic 94–128; BP diastolic 44–74
--- NOTE | 2018-02-16 14:02 | EKG ---
[place] [address] ELECTROCARDIOGRAM REPORT Name: BALDOMERO CALLE Room: [address] ADM IN M.R.#: [id number] Admission: 02/12/18 Attend Phys: Lyric Reed MD Discharge: Date of : 42 Report #: [id number] THIS REPORT FOR: //name// [facility] Test Date: 2018-02-16 Test Time: 08:08:29 Pat Name: BALDOMERO CALLE Department: Room: [address] Gender: F Divorce Lawyer: : 1940 Requested By: Ailin Cloud Order Number: [id number] Reading MD: Abhishek Cloud Measurements Intervals [place] Rate: 92 P: 52 NM: 146 QRS: 44 QRSD: 62 T: 242 QT: 396 QTc: 490 Interpretive Statements Sinus rhythm Multiform ventricular premature complexes Low voltage, extremity leads Borderline repolarization abnormality Borderline prolonged QT interval Compared to ECG 02/14/2018 01:47:43 Sinus tachycardia no longer present ST (T wave) deviation no longer present Electronically Signed On 02-16-2018 14:01:54 CDT by Abhishek Cloud [email or web address] <ELECTRONICALLY SIGNED> By: Ailin Cloud MD, [facility] 02/16/18 1401 0808 0808 Ailin Cloud MD, [facility] /EPI
[2018-02-17 04:00] VITALS: BP 132/72
[2018-02-17 08:02] VITALS: BP 126/69
[2018-02-17 10:40] LABS: BE -0.5 mmol/L (-2 to +3); HCO3 22.5 mmol/L (22.0-26.0); PCO2 30.1 mmHg (35.0-45.0); PO2 90.1 mmHg (75.0-100.0); pH 7.491 (7.340-7.450)
[2018-02-17 10:47] LABS: ABSOLUTE BASOPHILS 0.1 thou/uL (0.0-0.2); ABSOLUTE EOSINOPHILS 0.1 thou/uL (0.0-0.7); ABSOLUTE LYMPHOCYTES 1.4 thou/uL (0.8-5.3); ABSOLUTE MONOCYTES 1.3 thou/uL (0.0-1.2); ABSOLUTE NEUTROPHILS 8.4 thou/uL (1.6-8.1); BASOPHILS 0.6 %; EOSINOPHILS 0.5 %; HEMATOCRIT 26.8 % (37.0-47.0); HEMOGLOBIN 8.8 gm/dL (12.0-15.0); LYMPHOCYTES 12.6 %; MCH 29.9 pg (26.0-34.0); MCHC 32.8 g/dL (28.0-37.0); MCV 91.3 fL (80.0-100.0); MONOCYTES 11.6 %; MPV 9.5 fl. (7.2-11.1); NUCLEATED RBCS 0 /100WBC; PLATELET COUNT* 502 thou/uL (150-400); POLYS 74.7 %; RBC 2.94 mil/uL (4.20-5.00); RDW-CV 14.3 % (10.5-14.5); WBC 11.2 thou/uL (4.0-11.0)
[2018-02-17 10:49] LABS: CALCIUM 7.7 mg/dL (8.5-10.1); CREATININE 0.6 mg/dL (0.6-1.3); POTASSIUM 3.5 mmol/L (3.5-5.1)
[2018-02-17 10:57] LABS: TROPONIN-I LEVEL 0.13 ng/mL (<0.06)
[2018-02-17 16:00] VITALS: BP 111/60; BP 117/73; BP 128/63; BP 132/54; BP 139/68
--- NOTE | 2018-02-17 16:17 | EKG ---
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 : 1940 Requested By: Lyric Reed Order Number: [id number] Reading MD: Wes Moctezuma Measurements Intervals [place] Rate: 106 P: 49 MS: 152 QRS: 42 QRSD: 69 T: QT: 359 QTc: 477 Interpretive Statements Sinus tachycardia Paired ventricular premature complexes Low voltage, extremity leads Anteroseptal infarct, 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
[2018-02-17 19:30] VITALS: BP 131/79
[2018-02-18] VITALS (16 sets, daily range): BP systolic 104–147; BP diastolic 55–92
[2018-02-18 05:32] LABS: HEMATOCRIT 24.6 % (37.0-47.0); HEMOGLOBIN 8.1 gm/dL (12.0-15.0); MCH 30.3 pg (26.0-34.0); MCV 91.8 fL (80.0-100.0); MPV 9.7 fl. (7.2-11.1); RBC 2.68 mil/uL (4.20-5.00); RDW-CV 14.7 % (10.5-14.5)
[2018-02-18 05:53] LABS: ALBUMIN 1.8 g/dL (3.4-5.0); CALCIUM 7.5 mg/dL (8.5-10.1); CREATININE 0.5 mg/dL (0.6-1.3); MAGNESIUM 2.2 mg/dL (1.8-2.4); POTASSIUM 4.3 mmol/L (3.5-5.1); TOTAL BILIRUBIN 0.2 mg/dL (<0.1-1.0); TOTAL PROTEIN 5.1 g/dL (6.4-8.2)
[2018-02-19] VITALS (7 sets, daily range): BP systolic 110–117; BP diastolic 57–67
[2018-02-19 03:38] LABS: HEMATOCRIT 23.8 % (37.0-47.0); HEMOGLOBIN 7.9 gm/dL (12.0-15.0); MCH 30.7 pg (26.0-34.0); MCHC 33.1 g/dL (28.0-37.0); MCV 92.7 fL (80.0-100.0); MPV 9.2 fl. (7.2-11.1); RBC 2.57 mil/uL (4.20-5.00); RDW-CV 14.7 % (10.5-14.5); WBC 9.4 thou/uL (4.0-11.0)
[2018-02-19 03:55] LABS: CALCIUM 7.4 mg/dL (8.5-10.1); CREATININE 0.7 mg/dL (0.6-1.3); MAGNESIUM 2.1 mg/dL (1.8-2.4); POTASSIUM 3.8 mmol/L (3.5-5.1)
[2018-02-20] VITALS: BP 122/62
[2018-02-20 04:00] VITALS: BP 132/63
[2018-02-20 05:09] LABS: ABSOLUTE BASOPHILS 0.1 thou/uL (0.0-0.2); ABSOLUTE EOSINOPHILS 0.4 thou/uL (0.0-0.7); ABSOLUTE LYMPHOCYTES 1.2 thou/uL (0.8-5.3); ABSOLUTE MONOCYTES 1.1 thou/uL (0.0-1.2); ABSOLUTE NEUTROPHILS 6.3 thou/uL (1.6-8.1); BASOPHILS 0.8 %; EOSINOPHILS 4.1 %; HEMOGLOBIN 8.6 gm/dL (12.0-15.0); LYMPHOCYTES 13.6 %; MCH 30.4 pg (26.0-34.0); MCV 92.2 fL (80.0-100.0); MONOCYTES 12.3 %; MPV 9.3 fl. (7.2-11.1); NUCLEATED RBCS 0 /100WBC; PLATELET COUNT* 393 thou/uL (150-400); POLYS 69.2 %; RBC 2.82 mil/uL (4.20-5.00); RDW-CV 15.2 % (10.5-14.5); WBC 9.1 thou/uL (4.0-11.0)
[2018-02-20 05:21] LABS: ALBUMIN 1.8 g/dL (3.4-5.0); CREATININE 0.7 mg/dL (0.6-1.3); POTASSIUM 3.7 mmol/L (3.5-5.1); TOTAL BILIRUBIN 0.3 mg/dL (<0.1-1.0); TOTAL PROTEIN 5.7 g/dL (6.4-8.2)
[2018-02-20 07:30] VITALS: BP 140/75
[2018-02-20 11:47] VITALS: BP 132/77
[2018-02-20 15:30] VITALS: BP 139/77
[2018-02-20 19:30] VITALS: BP 135/67
[2018-02-21 04:00] VITALS: BP 139/80
[2018-02-21 04:32] LABS: ABSOLUTE BASOPHILS 0.1 thou/uL (0.0-0.2); ABSOLUTE EOSINOPHILS 0.1 thou/uL (0.0-0.7); ABSOLUTE LYMPHOCYTES 1.5 thou/uL (0.8-5.3); ABSOLUTE MONOCYTES 1.5 thou/uL (0.0-1.2); BASOPHILS 0.9 %; EOSINOPHILS 1.6 %; HEMATOCRIT 24.5 % (37.0-47.0); HEMOGLOBIN 8.3 gm/dL (12.0-15.0); LYMPHOCYTES 15.9 %; MCH 31.2 pg (26.0-34.0); MCHC 33.8 g/dL (28.0-37.0); MCV 92.1 fL (80.0-100.0); MONOCYTES 16.4 %; MPV 9.5 fl. (7.2-11.1); NUCLEATED RBCS 0 /100WBC; PLATELET COUNT* 392 thou/uL (150-400); POLYS 65.2 %; RBC 2.66 mil/uL (4.20-5.00); RDW-CV 15.3 % (10.5-14.5); WBC 9.1 thou/uL (4.0-11.0)
[2018-02-21 04:51] LABS: ALBUMIN 1.9 g/dL (3.4-5.0); CALCIUM 7.9 mg/dL (8.5-10.1); CREATININE 0.8 mg/dL (0.6-1.3); POTASSIUM 3.2 mmol/L (3.5-5.1); TOTAL BILIRUBIN 0.3 mg/dL (<0.1-1.0); TOTAL PROTEIN 5.8 g/dL (6.4-8.2)
[2018-02-21 07:25] LABS: URINE BILIRUBIN NEGATIVE (Negative); URINE BLOOD 3+ (Negative); URINE CLARITY CLEAR; URINE COLOR YELLOW; URINE GLUCOSE-RANDOM NEGATIVE (Negative); URINE KETONES 1+ (Negative); URINE LEUKOCYTES-REFLEX TRACE (Negative); URINE NITRITE-REFLEX NEGATIVE (Negative); URINE PROTEIN TRACE (Negative); URINE UROBILINOGEN 0.2 E.U./dl (0.2-1.0)
[2018-02-21 07:30] VITALS: BP 143/83
[2018-02-21 07:38] LABS: BACTERIA-REFLEX 1-9 Few /HPF (None Seen); CASTS None Seen /LPF (None Seen); CRYSTALS None Seen /LPF (None Seen); MUCUS 0-3 Light strn/LPF (None Seen)
[2018-02-21 07:39] LABS: URINE WBC-REFLEX 0-5 Rare /HPF (0-5)
[2018-02-21 08:48] LABS: SQUAMOUS NONE SEEN /LPF (0-3)
[2018-02-21 11:48] VITALS: BP 136/68
[2018-02-21 15:57] VITALS: BP 145/85
--- NOTE | 2018-02-21 17:07 | CARDNUC ---
[place] [address] CARDIAC NUCLEAR IMAGING REPORT Name: BALDOMERO CALLE Room: [address] IN [facility]#: [id number] Admission: 02/12/18 Attend Phys: Lyric Reed, Discharge: Date of : 42 Date of Service: 02/21/18 1707 Report #: [id number] THIS REPORT FOR: //name// APPROVED REPORT Study performed: 02/20/2018 09:41:00 Indication: dyspnea Patient Location: In-Patient Room #: 202 Stress Tech: Meg Doss Stress Nurse: Leonarda Go RN Ht: 5 ft 2 in Wt: 135 lbs BSA: 1.62 m2 BMI: 24.68 Medical History Medical History: psvt, crdiomyopathy, hyperlipidemia Medications: carvedilol, enoxaparin, lisinopril Allergies: nkda Cardiac Risk Factors: age, hyperlipidemia Exercise History: Sedentary Meds Held (24 hrs): carvedilol Resting Data Rest SPECT myocardial perfusion imaging was performed in supine position 30 minutes following the intravenous injection of 11.6 mCi of Tc-99m Sestamibi. Time of rest injection: 07:50 The images were gated to evaluate regional wall motion and calculate left ventricular ejection fraction. Administration Route: IV Administration Site: Right AC Pharmacologic Stress Pharmacologic stress test was performed by injecting Regadenoson 0.4 mg IV push over 10-15 seconds immediately followed by the intravenous injection of 36.0 mCi of Tc-99m Sestamibi. Time of stress injection: 09:10 Administration Route: IV Administration Site: Right AC Heart Rate at time of stress injection: 117 bpm. Gated Stress SPECT was performed 40 minutes after stress injection. The images were gated to evaluate regional [place] [address] CARDIAC NUCLEAR IMAGING REPORT Name: CALLEBALDOMEROANDI DONNELLY Room: [address] IN ..#: [id number] Admission: 02/12/18 Attend Phys: Lyric Reed, Discharge: Date of : 42 Date of Service: 02/21/18 1707 Report #: [id number] left ventricular ejection fraction. Stress Test Details Stress Test: Pharmacologic stress testing performed using 0.4 mg of regadenoson per 5 mL given IV over 10 seconds. Reason for pharmacologic stress test: physical limitation. 60 mg caffeine given for other. HR Max Heart Rate (APMHR): 144 bpm Resting HR: 103 bpm Target HR (85% APMHR): 122 bpm Max HR Achieved: 117 bpm % of APMHR: 81 Recovery HR: 113 bpm BP Resting BP: 147/86 mmHg Recovery BP: 140/74 mmHg ECG Resting ECG: Sinus Rhythm, nonspecific ST-T abnormalities Stress ECG: Sinus Rhythm, nonspecific ST-T abnormalities ST Change: None Arrhythmia: VPC's Recovery ECG: Sinus Rhythm, nonspecific ST-T abnormalities Recovery ST Change: None Recovery Arrhythmia: VPC Clinical Reason for Termination: Completed protocol Exercise duration: 0 min sec Exercise capacity: 1 METs The patient tolerated Lexiscan infusion without significant symptoms. Nurse Comments vero used dueto pt inability to stand or ambulate without assistance. iv caffeine given due to pt continued clear liquids only status Stress ECG Conclusion The baseline 12-lead EKG shows sinus rhythm with nonspecific ST and T wave changes. There are occasional unifocal premature ventricular contractions. EKGs obtained during and post Lexiscan infusion show sinus rhythm with persistent nonspecific ST and T wave changes. Patient continued to have unif[place] [address] CARDIAC NUCLEAR IMAGING REPORT Name: BALDOMERO CALLE Room: [address]#: [id number] Admission: 02/12/18 Attend Phys: Lyric Reed, Discharge: Date of : 42 Date of Service: 02/21/18 1707 Report #: [id number] contractions. No other significant stress-induced arrhythmias identified. Study Quality Study: Good Artifact: No artifact Study Data At rest, the left ventricular ejection fraction was 25%.. Post stress, the left ventricular ejection was 30%.. TID = 0.99. Perfusion There is a large in size moderate to severe intensity defect involving the basal to distal anterior wall. No other significant defects are identified. Wall Motion There is severe hypokinesis to akinesis of mid and distal anterior wall. 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 There was no evidence of inducible ischemia. Left ventricular systolic function is severely decreased with wall motion abnormalities as outlined above. This is a high risk study based on severe left ventricular systolic dysfunction. <Conclusion> The baseline 12-lead EKG shows sinus rhythm with nonspecific ST and T wave changes. There are occasional unifocal premature ventricular contractions. EKGs obtained during and post Lexiscan infusion show sinus rhythm with persistent nonspecific ST and T wave changes. Patient continued to have unifocal premature ventricular contractions. No other significant stress-induced arrhythmias identified. <ELECTRONICALLY SIGNED> By: Gadiel Tavera MD, FACC 02/21/181706 06 06 Gadiel Tavera MD, FACC /INF
[2018-02-21 20:00] VITALS: BP 139/75
[2018-02-21 22:12] LABS: BE 2.2 mmol/L (-2 to +3); HCO3 24.5 mmol/L (22.0-26.0); PCO2 29.7 mmHg (35.0-45.0); PO2 77.8 mmHg (75.0-100.0); pH 7.534 (7.340-7.450)
[2018-02-22] VITALS: BP 139/77
[2018-02-22 04:00] VITALS: BP 135/89
[2018-02-22 06:48] LABS: MAGNESIUM 1.9 mg/dL (1.8-2.4); POTASSIUM 3.5 mmol/L (3.5-5.1)
[2018-02-22 08:13] VITALS: BP 137/71
[2018-02-22 11:35] VITALS: BP 117/76
[2018-02-22 16:00] VITALS: BP 132/81
[2018-02-22 20:00] VITALS: BP 116/74
[2018-02-23] VITALS: BP 114/64
[2018-02-23 04:00] VITALS: BP 119/60
[2018-02-23 05:13] LABS: ABSOLUTE BASOPHILS 0.1 thou/uL (0.0-0.2); ABSOLUTE EOSINOPHILS 0.4 thou/uL (0.0-0.7); ABSOLUTE LYMPHOCYTES 2.4 thou/uL (0.8-5.3); ABSOLUTE MONOCYTES 1.3 thou/uL (0.0-1.2); ABSOLUTE NEUTROPHILS 4.9 thou/uL (1.6-8.1); BASOPHILS 1.4 %; EOSINOPHILS 4.5 %; HEMATOCRIT 29.3 % (37.0-47.0); HEMOGLOBIN 9.7 gm/dL (12.0-15.0); MCH 30.6 pg (26.0-34.0); MCV 92.7 fL (80.0-100.0); MONOCYTES 14.7 %; MPV 9.8 fl. (7.2-11.1); NUCLEATED RBCS 0 /100WBC; PLATELET COUNT* 431 thou/uL (150-400); POLYS 53.4 %; RBC 3.16 mil/uL (4.20-5.00); RDW-CV 16.6 % (10.5-14.5); WBC 9.1 thou/uL (4.0-11.0)
[2018-02-23 05:48] LABS: ALBUMIN 2.5 g/dL (3.4-5.0); CALCIUM 8.3 mg/dL (8.5-10.1); CREATININE 0.9 mg/dL (0.6-1.3); POTASSIUM 3.5 mmol/L (3.5-5.1); TOTAL BILIRUBIN 0.3 mg/dL (<0.1-1.0)
[2018-02-23 07:51] VITALS: BP 122/56
[2018-02-23 12:00] VITALS: BP 109/74
[2018-02-23 15:51] VITALS: BP 118/70
[2018-02-23 20:00] VITALS: BP 127/74
[2018-02-24] VITALS: BP 137/85
[2018-02-24 04:00] VITALS: BP 124/76
[2018-02-24 04:30] LABS: ABSOLUTE BASOPHILS 0.1 thou/uL (0.0-0.2); ABSOLUTE EOSINOPHILS 0.4 thou/uL (0.0-0.7); ABSOLUTE LYMPHOCYTES 1.7 thou/uL (0.8-5.3); ABSOLUTE MONOCYTES 1.3 thou/uL (0.0-1.2); ABSOLUTE NEUTROPHILS 5.4 thou/uL (1.6-8.1); EOSINOPHILS 4.6 %; HEMATOCRIT 30.8 % (37.0-47.0); LYMPHOCYTES 19.5 %; MCH 30.2 pg (26.0-34.0); MCHC 32.6 g/dL (28.0-37.0); MCV 92.5 fL (80.0-100.0); MONOCYTES 14.3 %; MPV 9.9 fl. (7.2-11.1); NUCLEATED RBCS 0 /100WBC; PLATELET COUNT* 446 thou/uL (150-400); POLYS 60.6 %; RBC 3.33 mil/uL (4.20-5.00); RDW-CV 16.8 % (10.5-14.5); WBC 8.9 thou/uL (4.0-11.0)
[2018-02-24 04:32] LABS: ALBUMIN 2.5 g/dL (3.4-5.0); CALCIUM 8.5 mg/dL (8.5-10.1); CREATININE 0.8 mg/dL (0.6-1.3); POTASSIUM 3.5 mmol/L (3.5-5.1); TOTAL BILIRUBIN 0.5 mg/dL (<0.1-1.0); TOTAL PROTEIN 6.6 g/dL (6.4-8.2)
[2018-02-24 08:00] VITALS: BP 133/63
[2018-02-24] MEDS ORDERED: XANAX 0.25 MG0.25 MG PO (11:27)
[2018-02-24] MEDS ORDERED: BISACODYL5 MG PO (11:27)
[2018-02-24] MEDS ORDERED: CARVEDILOL3.125 MG PO (11:28)
[2018-02-24] MEDS ORDERED: COZAAR 25 MG TA25 M2 PO (11:28)
[2018-02-24] MEDS ORDERED: LASIX 40 MG TAB40 M2 PO (11:28)
[2018-02-24] MEDS ORDERED: ENOXAPARIN40 MG/0.1 SUBQ (11:29)
[2018-02-24] MEDS ORDERED: POTASSIUM20 PO (11:29)
[2018-02-24] MEDS ORDERED: RISPERDAL0.25 MG PO (11:30)
[2018-02-24] MEDS ORDERED: AUGMENTIN 500-1 EACH PO (11:51)
[2018-02-24 12:00] VITALS: BP 110/70
[2018-02-24 16:00] VITALS: BP 107/54
[2018-02-24 20:00] VITALS: BP 104/57
[2018-02-25] VITALS: BP 100/57
[2018-02-25 04:00] VITALS: BP 104/53
[2018-02-25 07:30] VITALS: BP 124/61
[2018-02-25 08:00] VITALS: BP 124/61
[2018-02-25 08:53] VITALS: BP 124/61
--- NOTE | 2018-03-03 10:19 | CON ---
[address] [address] CONSULTATION Name: BALDOMERO CALLE Room: [address] IN M.R.#: [id number] Admission: 02/12/18 Attend Phys: Lyric Reed MD Discharge: 02/25/18 Date of : 42 Report #: [id number] THIS REPORT FOR: //name// CC: Tyrone Reed REASON FOR CONSULTATION: Evaluation and recommendations regarding post-acute rehabilitation in a female known to this service from previous admission as well as consultation. She is status post diverticular abscess, peritonitis and post-sigmoidectomy. She did have an ileus which is improved, hydronephrosis, status post diskectomy and bilateral stenting. She does have an ongoing history of anemia, systolic heart failure, some dementia, encephalopathy, hyperlipidemia, and hypothyroid. She has been participating in physical and occupational therapies and is now ready for continued acute inpatient rehabilitation to facilitate safe discharge to home setting where she does have a who is able to provide supervision and some help. PAST MEDICAL HISTORY: Unchanged from previous. PAST SURGICAL HISTORY: Unchanged from previous. MEDICATIONS: Reviewed, reconciled and are available in the MAR. REVIEW OF SYSTEMS: A 14-point review of systems is negative except as mentioned in HPI. PHYSICAL EXAMINATION: GENERAL: Alert, oriented, in no apparent distress. VITAL SIGNS: Reviewed and are stable. HEENT: Atraumatic, normocephalic. Pupils equal, round, reactive. ABDOMEN: Soft, nontender, nondistended. NEUROLOGIC: Cranial nerves 2-12 grossly intact. No focal neuro deficits. ASSESSMENT: 1. Status post diverticulitis with known abscess, peritonitis and status post sigmoidectomy. 2. Encephalopathy. 3. Dementia. PLAN: Recommend further acute rehabilitation to facilitate safe discharge to the home setting and we will anticipate that when medically stable. <ELECTRONICALLY SIGNED> By: Lena Abel DO 03/03/18 1019 1255 [id number] Abel DO /nt
--- NOTE | 2018-03-06 15:30 | OP ---
[address] [address] OPERATIVE REPORT Name: BALDOMERO CALLE Room: [address] IN M.R.#: [id number] Admission: 02/12/18 Attend Phys: Lyric Reed MD Discharge: 02/25/18 Date of : 41 Report #: [id number] THIS REPORT FOR: //name// CC: Tyrone Reed PREOPERATIVE DIAGNOSES: Suspected peritonitis, history of sigmoid colectomy. POSTOPERATIVE DIAGNOSIS: Normal postoperative finding. OPERATIVE PROCEDURE: Diagnostic laparoscopy. OPERATING PHYSICIAN: Surendra Palomo MD. INDICATION FOR PROCEDURE: The patient is a 77-year-old female who recently underwent a sigmoid colectomy for diverticular abscess. She had a primary anastomosis done. She was doing well; however, for the last day or 2, she developed features of sepsis and abdominal pain and possibly mild peritoneal signs. The patient had a CT scan, which was not conclusive. The patient was advised diagnostic laparoscopy, possible exploratory laparotomy. DESCRIPTION OF PROCEDURE: After explaining to the patient in detail and informed consent is obtained, the patient was identified in the preoperative holding area. The patient was transferred to the operating room and was placed in supine position. Sequential compression devices were placed for DVT prophylaxis. Preoperative antibiotics were given. After induction of anesthesia, the abdomen was prepped and draped in a sterile fashion. Through a left upper quadrant 1-cm preincision that was previously placed by the previous incision site and using Optiview technique, peritoneal cavity was entered. A pneumoperitoneum was created. Under direct vision, another 5-mm trocar was placed in the right lower quadrant. Another 5-mm trocar was placed in the right flank. On initial inspection, the patient was noted to have dilated small bowel. I did not notice any evidence of free fluid or any definite areas of abscess. I then inspected the pelvis area where the anastomosis was and I did not see any evidence to suggest a perforation. There was some serous fluid that was noted near the anastomosis. I then placed a drain that is dislodged anteriorly to the area of anastomosis. I inspected the left and right lower quadrant region. The bowel was dilated and therefore, the visualization was very limited to the right adnexal structures very well and as the tissues were friable, I did not want to dig deep into this area. I took down a few adhesions by blunt dissection. I did not see any definite areas of obstruction. I then gave irrigation of the abdomen. The abdomen was then deflated. Incisions were closed with 4-0 Monocryl. Dermabond was applied. The patient was stable at the end of the procedure. The patient awokened from anesthesia and was transferred to the ICU in stable condition. ESTIMATED BLOOD LOSS: [place] [address] OPERATIVE REPORT Name: BALDOMERO CALLE Room: [address] IN M.R.#: [id number] Admission: 02/12/18 Attend Phys: Lyric Reed MD Discharge: 02/25/18 Date of : 41 Report #: [id number] COMPLICATIONS: None. ANESTHESIA: General anesthesia. <ELECTRONICALLY SIGNED> By: Surendra Palomo MD 03/06/18 1530 1518 1557Surendra Palomo MD /nt
--- NOTE | 2018-03-06 15:30 | OP ---
[address] [address] OPERATIVE REPORT Name: BALDOMERO CALLE Room: [address] IN M.R.#: [id number] Admission: 02/12/18 Attend Phys: Lyric Reed MD Discharge: 02/25/18 Date of : 41 Report #: [id number] THIS REPORT FOR: //name// CC: Tyrone Reed DATE OF SERVICE: 02/13/2018 PREOPERATIVE DIAGNOSES: 1. Sigmoid diverticulitis with abscess. 2. Multiple right ovarian cysts. POSTOPERATIVE DIAGNOSES: 1. Sigmoid diverticulitis with abscess. 2. Multiple right ovarian cysts. OPERATIVE PROCEDURE: 1. Laparoscopic sigmoid colectomy and primary anastomosis. 2. Laparoscopic takedown of splenic flexure. 3. Drainage of intra-abdominal abscess and right ovarian cyst drainage. SURGEON: Dr. Surendra Palomo. CONSTRUCTION MGR: Trevor Lutz. INDICATIONS: The patient is a 77-year-old female who presented with complaints of acute onset of abdominal pain. A clinical exam and CT scan showed features of diverticulitis with an abscess in the pelvis. The patient was treated with antibiotics initially; however, she continued to have persistent small abscess in addition to persistent pain. The patient was advised laparoscopic sigmoidectomy and primary anastomosis. The patient showed understanding and agreed to proceed. DESCRIPTION OF PROCEDURE: After explaining to the patient in detail, an informed consent was obtained. The patient was identified in the preoperative holding area, the patient was transferred to the operating room and was placed in supine position. Sequential compressive devices were placed for DVT prophylaxis. The patient had cystoscopy and ureteral stent placement just prior to my part of the procedure. The abdomen was prepped and draped in a sterile fashion. The patient was subsequently placed and laid in lithotomy position. Prior to this, through a right upper quadrant 1 cm incision and using Optiview technique, the peritoneal cavity was entered and pneumoperitoneum was created. Under direct vision, another 5 mm trocar was placed in the right lower quadrant region, another 12 mm trocar was placed in the mid abdomen, another 5 mm trocar was placed in the left flank. On initial inspection, [place] [address] OPERATIVE REPORT Name: BALDOMERO CALLE Room: [address] IN [facility].#: [id number] Admission: 02/12/18 Attend Phys: Lyric Reed MD Discharge: 02/25/18 Date of : 41 Report #: [id number] have an inflammatory mass in the right lower quadrant region. Initially, I was able to identify only a couple of cysts that did not appear to be related to the colon; however, on subsequent exploration in this region, I was able to identify the abscess cavity, approximately about 10 mL of thick pus was drained. I started to take on the sigmoid colon from its lateral attachments and this was continued superiorly. The descending colon was dissected off from the lateral abdominal wall along the white line of Toldt superiorly. The splenic flexure was mobilized again along the avascular plane and the distal transverse colon also was mobilized along the avascular plane. I then medialized the colon as much as possible. Once this is achieved, I continued dissection downward stopped. I then transected the sigmoid colon and the distal part using Endo-ZHEN Covminicabiten purple load stapler. Once this was completed, I then divided the mesentery proximally and after adequate length was obtained, I then extended the midline incision by another 5 cm and through a 7 cm incision, the wound protector was placed. The colon was then exteriorized. A pursestring suture was then placed at the descending sigmoid junction using a pursestring device. The colon was transected just distal to this using a #15 blade and the sigmoid colon was removed. I then introduced a 28 size anvil into this part of the colon and the pursestring suture was then ligated. A 25 size dilator was then introduced into the rectum; however, we had difficulty advancing it all the way. I did also attempt with a 28 size and we were unable to get past the rectosigmoid region. I then performed a flexible sigmoidoscopy to evaluate what the problem was and I noted that the distal sigmoid was strictured and there was a very acute angle at the rectosigmoid region. I then went back into the abdomen. I then re-resected the distal stump of the sigmoid by another 8-10 cm distally dividing right at the rectosigmoid region. The mesentery was then divided using EnSeal and thereafter, we were able to pass a 25 size dilator up to the anastomotic region and then a bigger dilator and then the stapler was introduced and an end-to-end anastomosis was performed and the donut appeared to be intact. An air leak test was performed by instilling air into the rectum and by irrigation of fluid along the staple line. There was no leak that was noted. Thorough saline irrigation was given. Absolute hemostasis was ensured. A 19-Nepalese CAMRON drain was placed in the pelvis. Prior to this, I also dissected off the cyst wall from the right adnexal region that was involved in the inflammatory mass and I was able to suction out the cyst, which appeared to be a benign cyst. An OB consultation was obtained; however, the only physician who we thought had privileges here said that he does not come to [place] anymore. The cyst was drained and the wall was sent for histopathology. Once again after thorough saline irrigation and after hemostasis, the abdomen was then deflated. The midline incision was closed in layers using #1 PDS for the fascia. Skin was closed with jaxson for all incisions. The patient was awoken from anesthesia and was transferred to the recovery room in stable condition. ESTIMATED BLOOD LOSS: Approximately 50 mL. CONDITION: [place] [address] OPERATIVE REPORT Name: BALDOMERO CALLE Room: [address]#: [id number] Admission: 02/12/18 Attend Phys: Lyric Reed MD Discharge: 02/25/18 Date of : 42 Report #: [id number] Fluids given per Anesthesia note. Specimens sent were sigmoid colon, donut and ovarian cyst wall. <ELECTRONICALLY SIGNED> By: Surendra Palomo MD 03/06/18 1530 1312 [id number] Palomo MD /nt
--- NOTE | 2018-03-28 14:48 | PATH ---
[address] [address] PATHOLOGY RPT PROCEDURE Name: BALDOMERO CALLE Room: [address] IN M.R.#: [id number] Admission: 02/12/18 Date of : 42 Discharge: 02/25/18 Report #: [id number] Path Case #: [id number] [facility] Accession Number: [id number] . 01 Material submitted: . PART A: CYST WALL PART B: SIGMOID COLON . 01 Clinician provided ICD-10: K57.20 . 01 Clinical history: . Diverticulitis with abscess. . 02 Diagnosis: A. Cyst wall: - Fibrous soft tissue with hemorrhage, and acute and chronic inflammation. - Definitive cyst wall not identified. - Negative for malignancy. . B. Sigmoid coon: - Diverticulitis with abscess formation and granulation tissue formation. - Acute serositis. - Serosal adhesions. - Negative for malignancy. (MAP:[facility] 02/17/2018) QTP/02/17/2018 . 02 Electronically signed: . Gadiel Sanchez MD, Pathologist NPI- [id number] . 01 Gross description: . A. Received in formalin labeled "Baldomero Calle, cyst wall" is a pink-red portion of membranous soft tissue measuring 1.9 x 1.4 x 0.5 cm. The specimen is serially sectioned and submitted entirely in cassette A1. . B. Received in formalin labeled "Baldomero Calle, sigmoid colon" are two unoriented segments of bowel which measure 6.8 x 2.5 cm and 15.2 x 2.6 cm. The serosal surfaces are pink-sheehan and smooth, with the larger piece displaying a sheehan-white ragged and fibrotic area measuring 3.5 x 1.7 cm. The mucosal margins on the larger segment are closed with staple lines. The smaller segment has an open margin on one aspect and a staple line margin on the opposite aspect. Upon opening both pieces, the colonic mucosa is pink-sheehan without polyps or masses. The larger segment displays numerous diverticula which extend into the pericolonic fat and range from 0.4-1.0 cm in greatest dimension. Diverticula are identified adjacent to the fibrotic area on the serosa, [place] [address] PATHOLOGY RPT PROCEDURE Name: BALDOMERO CALLE Room: [address] M.R.#: [id number] Admission: 02/12/18 Date of : 42 Discharge: 02/25/18 Report #: [id number] Path Case #: [id number] identified. The smaller bowel segment is sectioned to reveal no grossly identifiable diverticula. Senior Clinical Study Manager sections of the specimen are submitted as follows: B1-B2 logistics service representative diverticula from larger bowel segment B3-B4 logistics service representative diverticula and adjacent fibrotic serosa from larger bowel segment B5-B6 logistics service representative sections of smaller bowel segment ([facility]; 02/16/2018) SYC/SYC . 02 Pathologist provided ICD-10: M79.9, K57.20, K65.8 . 02 CPT . 093820, [id number] Specimen Comment: Report sent to , and Specimen Comment: A duplicate report has been generated due to demographic updates. Performed at: [address], [place] [id number] MD Maxwell Mcclelland MD Phone: [phone] Performed at: 02 [facility] [address], [place], [place] [id number] MD James Rogel MD Phone: [phone]
== END 2018-02-25 16:00 | DRG 853 ==
LOC: M.TBA 11:09 → M.ORTHSURG 14:00 → M.2W 02-13 14:19 → M.ICU 02-18 10:43 → M.2W 02-19 17:17
PROVIDERS: Internal Medicine; Specialist; Surgery; ADMIT Internal Medicine
PROC: 0T788DZ Dilation of Bilateral Ureters with Intraluminal Device, Via Natural or Artificial Opening Endoscopic (ICD-10-PCS; principal; 2018-02-13)
PROC: BT141ZZ Fluoroscopy of Kidneys, Ureters and Bladder using Low Osmolar Contrast (ICD-10-PCS; principal; 2018-02-13)
PROC: 0U904ZZ Drainage of Right Ovary, Percutaneous Endoscopic Approach (ICD-10-PCS; 2018-02-14)
PROC: 0DJD8ZZ Inspection of Lower Intestinal Tract, Via Natural or Artificial Opening Endoscopic (ICD-10-PCS; 2018-02-14)
PROC: 0DBN4ZZ Excision of Sigmoid Colon, Percutaneous Endoscopic Approach (ICD-10-PCS; 2018-02-14)
PROC: 0WJG4ZZ Inspection of Peritoneal Cavity, Percutaneous Endoscopic Approach (ICD-10-PCS; 2018-02-18)
DX: A41.9 Sepsis, unspecified organism (principal); G93.41 Metabolic encephalopathy; K65.9 Peritonitis, unspecified; J18.9 Pneumonia, unspecified organism; L02.818 Cutaneous abscess of other sites; E44.0 Moderate protein-calorie malnutrition; K56.7 Ileus, unspecified; N13.30 Unspecified hydronephrosis; K57.20 Diverticulitis of large intestine with perforation and abscess without bleeding; I47.1 Supraventricular tachycardia; N39.0 Urinary tract infection, site not specified; I42.9 Cardiomyopathy, unspecified; I50.20 Unspecified systolic (congestive) heart failure; E03.9 Hypothyroidism, unspecified; E78.5 Hyperlipidemia, unspecified; N83.201 Unspecified ovarian cyst, right side; F03.90 Unspecified dementia, unspecified severity, without behavioral disturbance, psychotic disturbance, mood disturbance, and anxiety; I48.91 Unspecified atrial fibrillation; D64.9 Anemia, unspecified; D47.3 Essential (hemorrhagic) thrombocythemia; E83.42 Hypomagnesemia; I95.9 Hypotension, unspecified; Z95.5 Presence of coronary angioplasty implant and graft; Z68.22 Body mass index [BMI] 22.0-22.9, adult

== ENCOUNTER 2018-02-25 10:38 | Inpatient (IN) | payer MEDICARE, BC ==
[~2018-02-25] VITALS: Ht 160 cm; Wt 53.5 kg
--- NOTE | ~2018-02-25 | D ---
[facility] [address] [place] [address] DISCHARGE SUMMARY Name: BALDOMERO CALLE Room: [address] IN M.R.#: [id number] Admission: 02/25/18 Attend Phys: Lena Abel DO Discharge: 03/07/18 Date of : 42 Report #: [id number] THIS REPORT FOR: //name// CC: Tyrone Abel DATE OF SERVICE: 03/07/2018 DISCHARGE DIAGNOSES: Encephalopathy as well as persistent abscess. DISCHARGE DISPOSITION: To home with home health, PT, OT and nursing. She will follow up with her surgeon within 2-4 weeks, her primary care physician within one week. Notifications for physician were given. She will maintain a normal diet. MEDICATIONS: Reviewed and reconciled by myself and are available in the MAR. DISCHARGE PHYSICAL EXAMINATION: GENERAL: Alert, oriented, in no apparent distress. VITAL SIGNS: Reviewed and are stable. HEENT: Head atraumatic, normocephalic. Pupils equal, round, reactive. The patient did return home with her who did participate in family training and was notified of whom to contact should there be any further rehabilitation issues. By: 1313 [id number] Abel DO /nt
[~2018-02-25 10:38] MED LIST changes: +AUGMENTIN 500-1 EACH PO; +BISACODYL5 MG PO; +CARVEDILOL3.125 MG PO; +CEFTRIAXON1 GM/50 M1 IV; +COZAAR 25 MG TA25 M2 PO; +ENOXAPARIN40 MG/0.1 SUBQ; +FLOMAX0.4 MG PO; +LASIX 40 MG TAB40 M2 PO; +MELATONIN5 M1 PO; +METRO IV 5500 MG/100 IV; +POTASSIUM20 PO; +RISPERDAL0.25 MG PO; +TRAMADOL 50 MG50 MG PO; +XANAX 0.25 MG0.25 MG PO
[2018-02-25 16:12] VITALS: BP 87/40
[2018-02-25 17:11] VITALS: BP 87/40
--- NOTE | 2018-02-25 17:36 | NUR ---
PATIENT PRESENTED TO 323 PER W/C FROM [facility]. PATIENT IS ALERT AND ORIENTED TO PERSON,PLACE, AND SITUATION. PATIENT ORIENTED TO ROOM AND PROCEDURES. MIDLINE INCISION INTACT WITH RADHA. NO DRAINAGE NOTED. PATIENT DENIES PAIN TO INCISION SITE. 3 OTHER LAP SITES INTACT WITH SMALL DRY DRESSINGS. PATIENT'S BLOOD PRESSURES WERE LOW ON ARRIVAL 80S OVER 40S BP RETAKEN WITH SMAL CUFF AND WAS 102/50S. PATIENT C/O SOME WEAKNESS. PATIENT INSTRUCTED ON FALL PRECAUTIONS. CALL LIGHT IS IN REACH. IS IN AT THE BEDSIDE.
[2018-02-25 19:40] VITALS: BP 102/50
--- NOTE | 2018-02-25 19:45 | NUR ---
RESTING QUIETLY IN BED. PRN TYLENOL GIVEN FOR COMPLAINT OF RLQ PAIN RATED "8". ABD INCISION OPEN TO AIR, WELL APPROXIMATED WITH SLIGHT REDNESS IN SPOTS. RADHA DRY/INTACT. HAS TWO HEALING INCISIONS TO RIGHT OF MIDLINE OPEN TO AIR, SLIGHTLY RED, WELL APPROXIMATED. TOOK BIG PILLS WHOLE ONE AT A TIME WITH WATER AND TWO SMALL PILLS TOGETHER WHOLE WITH WATER.
[2018-02-26 05:01] LABS: HEMATOCRIT 30.2 % (37.0-47.0); MPV 10.3 fl. (7.2-11.1); RBC 3.22 mil/uL (4.20-5.00); RDW-CV 17.1 % (10.5-14.5)
[2018-02-26 06:01] LABS: CALCIUM 8.5 mg/dL (8.5-10.1); CREATININE 0.9 mg/dL (0.6-1.3); POTASSIUM 4.7 mmol/L (3.5-5.1)
--- NOTE | 2018-02-26 06:04 | NUR ---
RESTED ON/OFF. NO FURTHER COMPLAINT OF PAIN. SET BED ALARM OFF SEVERAL TIMES DURING THE NIGHT PRIOR TO GETTING OUT OF BED TO GO TO THE BATHROOM. REMINDED TO USE CALL LIGHT. PATIENT IS VERY FORGETFUL. HAD TWO LOOSE STOOL DURING THE NIGHT. DOES OWN [facility] AND CLOTHING ADJUSTMENTS. AMBULATES WITH SBA, GAITBELT, WALKER.
[2018-02-26 08:59] VITALS: BP 108/52
--- NOTE | 2018-02-26 15:14 | NUR ---
SW met with pt earlier in the day to complete initial assessment, reintroduce self, and SW role. Pt does not remember SW due to pt own memory limitations, but pt is known to this SW from previous admission. Pt alert, pleasant. Pt lives at home with her and has support 10/12 as needed. DONYA and Dr Abel met with pt after team conference to review team conference summary and plan for reteam with possible dc soon thereafter. Pt in agreement with plan. SW called pt Ole and reviewed team conference summary and dc planning. Pt did not have any concerns or questions at this time. SW to continue to follow to assist with safe dc planning.
--- NOTE | 2018-02-26 18:12 | NUR ---
ASSUMED CARE AT 0730, PATIENT ALERT/ORIENTED, NO COMPLAINTS OF PAIN THIS SHIFT, UP WITH ASSIST OF ONE AND GAIT BELT, BED/CHAIR ALARMS IN PLACE, CALL LIGHT IN REACH, HOURLY ROUNDING COMPLETED. PARTICIPATED IN ALL THERAPIES, INCISION TO ABDOMEN DETECTIVE LIEUTENANT, NO REDDNESS OR DRAINAGE NOTED. TO DINING ROOM FOR MEALS
[2018-02-26 19:55] VITALS: BP 98/45
--- NOTE | 2018-02-27 00:36 | NUR ---
ASSUMED CARE @ 1929-02/26-SAT.AWAKE IN BED.BED ALARM PUT ON @ 1929.SBA FOR ALL TRANSFERS & TOILETING.WANTS BATHROOM LIGHTS ON ALL NIGHT.WARM BLANKET PUT ON PATIENT @ 2099-PER PT'S REQUEST.TURNS SELF @ NIGHT.ON HOURLY ROUNDS.
--- NOTE | 2018-02-27 05:13 | NUR ---
SLEPT GOOD ALL NIGHT & SLEEPING SINCE 2099.BRP W/ SBA X3 DURING NIGHT.REFUSED HS SNACK.
--- NOTE | 2018-02-27 05:15 | NUR ---
PATIENT CALLED FOR ASSIST TO BATHROOM X3.DID NOT ATTEMPT TO GET OUT OF BED BY SELF DURING NIGHT.
[2018-02-27 08:26] VITALS: BP 115/47
--- NOTE | 2018-02-27 18:56 | NUR ---
PT HAS PARTICIPATED WITH THERAPIES AND AMBULATES WITH WALKER AND SBA OF 1 WITH GAITBELT ON. PT TOLERATES MEALS AND EATS IN DINNINGROOM PT HAD 1 LOOSE BM THIS AFTERNOON IN BATHROOM.RADHA REMOVED FROM ABDOMEN WITH INCISION WELL HEALED, STERISTRIPS APPLIED,PT DENIES PAIN. OTHER PUNCTURE SITES TO ABDOMEN INTACT WITH DERMABOND PRESENT. PT IS ALERT BUT CAN BE FORGETFULL. PT DID REMEMBER SOCK,BLUE,BED WHEN INTERVIEWED.PT PROGRESSES TOWARDS GOALS AND HOURLY ROUNDING CONTINUES.
[2018-02-27 20:00] VITALS: BP 102/47
--- NOTE | 2018-02-28 00:23 | NUR ---
ASSUMED CARE @ 1919-02/27-.AWAKE IN BED W/ HOB UP.BED ALARM PUT ON @ 1919.SBA FOR ALL TRANSFERS & TOILETING.ON HOURLY ROUNDS.TURNS SELF @ NIGHT.
--- NOTE | 2018-02-28 05:12 | NUR ---
SLEPT GOOD ALL NIGHT & CONTINOUSLY SINCE 2099.BRP W/ SBA X3 DURING NIGHT. REFUSED HS SNACK.
[2018-02-28 07:55] VITALS: BP 100/52
--- NOTE | 2018-02-28 14:25 | NUR ---
SW met with pt to discuss dc planning and pt felt that pt has improved and made enough progress in rehab that by next week, pt says that they plan for pt to be able to return home with him and HH services. Pt said that they looked at [facility] as a possibility but that they do not feel that at this time they would need to make a move. SW to continue to follow to assist with safe dc planning.
--- NOTE | 2018-02-28 18:20 | NUR ---
PT HAS PARTICIPATED WITH THERAPIES. PT AMBUALTES WITH GAITBELT AND SBA WITH STEADY GAIT. CHAIR AND BED ALARM IN USE, PT OCCASIONALLY FORGETS TO CALL FOR ASSIST. PT DENIES PAIN WITH ABDOMINAL INCISION HEALED AND STERISTRIPS INTACT ,SURGICAL GLUE INTACT TO PUNCTURE SITES.PT IS PLESANT AND ALERT BUT FORGETFULL. PT VOIDS WELL AND HAS HAD DIARRHEA STOOL THIS EVENING.PT PROGRESSES TOWARDS GOALS AND HOURLY ROUNDING CONTINUES.
--- NOTE | 2018-02-28 19:44 | NUR ---
RESTING QUIETLY IN BED AND WATCHING TV. DENIES DISCOMFORT. ABD MIDLINE INCISION COVERED WITH STERI STRIPS WHICH ARE DRY/INTACT. MIDLINE INCISION WELL APPROXIMATED. TWO INCISIONS TO RIGHT OF MIDLINE WELL APPROXIMATED AND OPEN TO AIR. REMINDED PATIENT TO CALL BEFORE GETTING UP. CALL LIGHT WITHIN REACH.
[2018-02-28 19:55] VITALS: BP 80/53
--- NOTE | 2018-03-01 05:51 | NUR ---
UP X TWO DURING THE NIGHT TO THE BATHROOM TO VOID. DIDN'T USE THE CALL LIGHT THE FIRST TIME. DID USE THE CALL LIGHT THE SECOND TIME. PAIN MEDICATION GIVEN AT 0101 FOR COMPLAINT OF RLQ PAIN WITH RELIEF. HOURLY ROUNDING IN PROGRESS.
[2018-03-01 08:00] VITALS: BP 104/49
--- NOTE | 2018-03-01 17:49 | NUR ---
AM ASSESSMENT AND VITAL SIGNS COMPLETED DOCUMENTED. PT WORKS WITH THERAPISTS AND CONTINUES TO MAKE PROGRESS TOWARD DISCHARGE GOALS. PT REMAINS ALERT, PLEASANT AND FORGETFUL. PT IS CONTINENT, USES THE BATHROOM AND IS ABLE TO DO HER OWN HYGEINE AND CLOTHING ADJUSTMENTS. HOURLY ROUNDING AND FALL PRECAUTIONS IN PLACE, PT CONTINUOUS TO BE IMPULSIVE AT TIMES.
[2018-03-01 19:25] VITALS: BP 90/37
--- NOTE | 2018-03-01 19:25 | NUR ---
RESTING QUIELTY IN BED AND WATCHING TV. STATES PAIN IN RLQ A "5".
--- NOTE | 2018-03-02 05:22 | NUR ---
PAIN MEDICATION GIVEN AT 1931 FOR COMPLAINT OF RLQ PAIN WITH RELIEF. NO FURTHER COMPLAINT OF PAIN. UP X 2 DURING THE NIGHT TO THE BATHROOM TO VOID. FORGETS TO PUT CALL LIGHT ON PRIOR TO GETTING OUT OF BED. HOURLY ROUNDING IN PROGRESS.
[2018-03-02 08:00] VITALS: BP 114/55
--- NOTE | 2018-03-02 18:31 | NUR ---
PT HAS BEEN PLEASANT, COOPERATIVE AND FORGETFUL. AM CARES DONE AT THE SINK INDEPENDENTLY, PT DECLINED A SPONGE BATH. NO C/O PAIN OR DISCOMFORT, ATE APPROX 50% AT ALL MEALS AND DRINKS A SUPPLEMENT WITH EACH MEAL. PT CONTINUES TO BE IMPULSIVE AND REQUIRES FREQUENT MONITORING HOWEVER, HER GAIT IS STEADY. PT IS SITTING UP WATCHING FOOTBALL WITH HER AT THIS TIME.
[2018-03-02 19:57] VITALS: BP 135/60
--- NOTE | 2018-03-03 01:19 | NUR ---
ASSUMED CARE @ 1939-03/02-SATURDAY.AWAKE IN BED W/ HOB UP.WATCHING BALL GAME W/ @ THIS TIME.BED ALARM PUT ON @ 1939. LEFT @ 1999.STILL AWAKE @ 2199 & 0000-03/03-SATURDAY.ON HOURLY ROUNDS.SHOULDER BONER DOING ODD HOUR ROUNDS.TURNS SELF @ NIGHT.
--- NOTE | 2018-03-03 05:25 | NUR ---
SLEPT LATE @ -SATURDAY.BRP W/ SBA X2.REFUSED HS SNACK.GOT UP ONCE W/OUT CALLING FOR SBA TO BATHROOM X1.REFUSED HS SNACK.
[2018-03-03 08:24] VITALS: BP 114/56
--- NOTE | 2018-03-03 14:37 | NUR ---
SPOKE WITH DR RAY AT 1417 HE STATED THAT PATIENT CAN FOLLOW UP IN OFFICE BY DR CALLE AFTER DISCHARGE FROM REHAB UNIT FOR STENT REMOVAL
[2018-03-03 14:41] VITALS: BP 106/46; BP 87/40
--- NOTE | 2018-03-03 18:12 | NUR ---
ASSUMED CARE AT 0730, PATIENT ALERT/ORIENTED, TRAMADOL GIVEN X1 FOR PAIN THIS SHIFT WITH GOOD RELIEF, UP WITH STANDBY ASSIST AND GAIT BELT, TO DINING ROOM FOR MEALS, BED/CHAIR ALARMS IN PLACE, CALL LIGHT IN REACH, PATIENT DOES USE CALL LIGHT, BUT DOES NOT WAIT FOR STAFF TO COME ASSIST HER EVEN AFTER CONTINUOUS REMINDERS TO NOT GET UP BE SELF. . PARTICIPATED IN ALL THERAPIES THIS SHIFT, HOURLY ROUNDING COMPLETED.
[2018-03-03 19:25] VITALS: BP 122/54
--- NOTE | 2018-03-04 00:47 | NUR ---
ASSUMED CARE @ 1924-03/03-SATURDAY.AWAKE IN BED W/ HOB UP WATCHING TV.SON VISITING @ THIS TIME.BED ALARM PUT ON @ 1924.PHYSICAL THERAPY REMOVED WALKER TODAY FROM PATIENT.ON HOURLY ROUNDS.TURNS SELF @ NIGHT.
--- NOTE | 2018-03-04 05:32 | NUR ---
SLEPT EARLY @ 2100 & SLEEPING GOOD ALL NIGHT.REFUSED HS COLACE.BRP W/ SBA X2. DID NOT CALL 2X FOR SBA TO BATHROOM.AT 0400,BED ALARM SOUNDED.FOUND STANDING FOOT PART OF BED.SBA TO BATHROOM 2ND TIME @ 0400.
[2018-03-04 08:30] VITALS: BP 110/61
--- NOTE | 2018-03-04 10:55 | NUR ---
HERE TO SEE PT AND REQUESTS BE NOTIFIED OF RECENT C/O RLQ PAIN AND 99.0 TEMP THIS AM. NOTIFIED WITH ORDERS GIVEN AND HE PLANS TO SEE PT TODAY OR IN AM. PRN FOR RLQ PAIN GIVEN THIS AM WITH GOOD EFFECT.
[2018-03-04 11:42] LABS: HEMATOCRIT 34.2 % (37.0-47.0); HEMOGLOBIN 11.1 gm/dL (12.0-15.0); MCH 30.4 pg (26.0-34.0); MCHC 32.3 g/dL (28.0-37.0); MCV 94.1 fL (80.0-100.0); MPV 9.8 fl. (7.2-11.1); RBC 3.64 mil/uL (4.20-5.00); RDW-CV 16.4 % (10.5-14.5); WBC 5.8 thou/uL (4.0-11.0)
[2018-03-04 11:50] LABS: CALCIUM 9.2 mg/dL (8.5-10.1); POTASSIUM 4.3 mmol/L (3.5-5.1)
--- NOTE | 2018-03-04 16:04 | NUR ---
pt has participated with therapies and ambulates with sba,gaitbelt and sba of 1 with steady gait. prn for pain of rlq given this am with good effect. has not come to visit yet. pt voiding well clear yellow urine present,unable to measure. pt has eaten 50% of meals today and drank ensure. pt plesant and alert and orientated to surroundings but is forgetfull and realizes this.pt is reminded to call for sba for all ambulation to prevent falls.pt continues to progress towards goals and hourly rounding continues. pt hopeing to go home soon.
[2018-03-04 19:45] VITALS: BP 112/60
--- NOTE | 2018-03-05 00:49 | NUR ---
ASSUMED CARE @ 1924-03/04-SATURDAY.AWAKE IN BED WATCHING TV.HOB UP.BED ALARM PUT ON @ 1924.SBA FOR ALL TRANSFERS & TOILETING.TEMP @ 829-99.0-ORAL.TEMP @ 1944-98.7 ORAL.ON HOURLY ROUNDS.TURNS SELF @ NIGHT.
--- NOTE | 2018-03-05 05:26 | NUR ---
SLEPT EARLY @ 2100 & SLEPT GOOD ALL NIGHT.REFUSED HS SNACK.BRP W/ SBA X2. USED CALL LIGHT TO CALL FOR NURSE FOR BRP W/ SBA.
[2018-03-05 08:00] VITALS: BP 107/47
--- NOTE | 2018-03-05 14:54 | NUR ---
DONYA and Dr Abel met with pt to review team conference summary and plan for pt to dc home with on Saturday. Pt okay with plan although hopeful for dc today; Dr Abel explained that there were a couple reasons to continue with therapy and to check UA and for time for surgeon to follow up with pt prior to pt dc. SW met with pt and pt and discussed dc planning for Saturday. SW mentioned recommendation for RW and pt said that they have a standard walker as well as rollator if needed. SW explained PT recommending standard front wheeled walker; pt understanding. SW discussed recommendation and orders for HH; pt and pt in agreement with HH services to follow. SW to continue to follow to assist with finalizing safe dc plan.
[2018-03-05 18:12] LABS: URINE BILIRUBIN NEGATIVE (Negative); URINE BLOOD 2+ (Negative); URINE CLARITY CLEAR; URINE COLOR YELLOW; URINE GLUCOSE-RANDOM NEGATIVE (Negative); URINE KETONES NEGATIVE (Negative); URINE LEUKOCYTES-REFLEX TRACE (Negative); URINE NITRITE-REFLEX NEGATIVE (Negative); URINE PROTEIN NEGATIVE (Negative); URINE UROBILINOGEN 0.2 E.U./dl (0.2-1.0)
[2018-03-05 18:21] LABS: HYALINE CASTS 4-10 Moderate /LPF (None Seen); MUCUS 0-3 Light strn/LPF (None Seen); SQUAMOUS 0-3 Few /LPF (0-3)
[2018-03-05 18:22] LABS: BACTERIA-REFLEX None Seen /HPF (None Seen); CRYSTALS None Seen /LPF (None Seen); URINE WBC-REFLEX 0-5 Rare /HPF (0-5)
--- NOTE | 2018-03-05 19:50 | NUR ---
RESTING QUIETLY IN BED AND WATCHING TV. IN GOOD SPIRITS, SMILING. DENIES DISCOMFORT. AMBULATES TO THE BATHROOM WITH GAITBELT, SBA, FORGETS TO CALL BEFORE GOING TO THE BATHROOM AND SETS BED ALARM OFF. DOES OWN HYGIENE AND CLOTHING ADJUSTMENTS.
[2018-03-05 20:06] VITALS: BP 118/61
--- NOTE | 2018-03-06 05:13 | NUR ---
UP X 2 DURING THE NIGHT TO THE BATHROOM TO VOID. CONTINUES TO NOT CALL BEFORE GETTING OUT OF BED. NO COMPLAINTS VOICED. HOURLY ROUNDING IN PROGRESS.
[2018-03-06 08:51] VITALS: BP 115/55
--- NOTE | 2018-03-06 17:59 | NUR ---
ASSUMED CARE AT 0730 PATIENT ALERT/ORIENTED, UP WITH STANDBY ASSIST, PATIENT DOES HAVE BED/CHAIR ALARMS IN PLACE, BUT DOES NOT USE THE CALL LIGHT, WILL GET UP ON OWN AND TURN OFF ALARMS. REPEATEDLY INSTRUCT PATIENT TO USE CALL LIGHT BUT PATIENT HAS DEMENTIA WITH SHORT TERM MEMORY LOSS AND DOES NOT RETAIN INFORMATION. HAS PARTICIPATED IN ALL THERAPIES TODAY, HOURLY ROUNDING COMPLETED, TO DINING ROOM FOR MEALS, TO BE DISCHARGED HOME TOMORROW.
[2018-03-06 19:43] VITALS: BP 99/55
--- NOTE | 2018-03-07 05:07 | NUR ---
ASSUMED CARES AT 1920. ALERT AND ORIENTED BUT VERY FORGETFUL. IMPULSIVE. MAJORITY OF TIME DOES NOT USE CALL LIGHT WHEN GETTING UP. SBA WITH GAIT BELT. UP TO BATHROOM. DOES OWN CARES. DENIED ANY PAIN, SOA, DIZZINESS, N/V. MIDLING INCISION HEALING WITH STERI STRIPS ARE INTACT. SLEPT MOST OF THE NIGHT. CALL LIGHT IN REACH AND BED ALARM ON.
[2018-03-07 07:52] VITALS: BP 106/46
[2018-03-07 11:56] VITALS: BP 106/46
--- NOTE | 2018-03-07 11:58 | NUR ---
Pt to dc home with 10/12 assistance/supervison today, Wednesday 03/07. HH services to follow. SW faxed referral and final orders and med list to pt/family preference of [facility]. Pt physical address: [address] [place], [place]. Pt has rolling walker at home when needed. Pt to provide pt ride home.
--- NOTE | 2018-03-26 13:57 | PLAN ---
[facility] [address] [place] [address] REHAB UNIT PLAN OF CARE Name: BALDOMERO CALLE Room: [address] IN [facility].#: [id number] Admission: 02/25/18 Attend Phys: Lena Abel DO Discharge: 03/07/18 Date of : 42 Report #: [id number] THIS REPORT FOR: //name// CC: Tyrone Abel HISTORY OF PRESENT ILLNESS: This is a 77-year-old female known to this practice from previous acute inpatient rehabilitation as well as consultation. She was admitted with encephalopathy, status post surgical intervention on 02/12/2018 to 02/14/2018 for laparoscopic sigmoid colectomy, drainage of an abscess and ureteral stents placed. She does have dementia and short-term memory loss, which is worsened by her postsurgical state. She also has multiple medical comorbidities and needs all 3 disciplines of therapy. MEDICAL PROGNOSIS: Good. REHABILITATION PROGNOSIS: Good. Estimated length of stay is 5-9 days with discharge disposition to the home setting where she has supportive family and an accessible house. Previous level of function prior to initial hospitalization on 01/18/2018 was modified independent to independent with activities of daily living. Current level of function is [id number] assistance depending on therapy, activity and time of day. She also has needs in cognition, memory, social interaction. Physical therapy will see the patient 60-90 minutes per day, 5 days per week, working on upper and lower body strength, balance, coordination, navigation. Occupational therapy will work with the patient 60-90 minutes per day, 5 days per week, working on upper and lower body strength, balance, coordination, navigation, bathing, dressing, and toileting. Speech and language pathology will work with the patient 60-90 minutes per day, 5 days per week, working on memory, cognition and strategies, social expression and swallow. This is an overall plan of care, may change from time to time. We will team weekly and make changes to plan of care as needed. <ELECTRONICALLY SIGNED> By: Lena Abel DO 03/26/18 1357 1445 [id number] Abel DO /nt
--- NOTE | 2018-03-26 13:57 | H ---
[address] [address] HISTORY AND PHYSICAL Name: BALDOMERO CALLE Room: [address] IN M.Roger.#: [id number] Admission: 02/25/18 Attend Phys: Lena Abel, Discharge: 03/07/18 Date of : 42 Report #: [id number] THIS REPORT FOR: //name// CC: Tyrone Abel DATE OF SERVICE: 02/25/2018 HISTORY OF PRESENT ILLNESS: This is a 77-year-old female known to this practice and unit from previous consultation and admission. She is status post diagnosis of encephalopathy, IGC code is not identified at this time. Date of onset was 01/18/2018, date of surgery is 02/12/2018 and 02/11/2018. Originally admitted to inpatient rehabilitation on 01/24/2018-02/12/2018 status post Interventional Radiology draining of an abscess. She did well during her therapies, but then was diagnosed with abscess, right ureteral hydronephrosis. She is status post cystoscopy, stent placement and a laparoscopic sigmoid colectomy of the splenic flexure and drainage of the intra-abdominal abscess. She has been participating in physical and occupational therapy as well as speech and language pathology, is medically stable and now appropriate for continued acute rehabilitation. She does have dementia and cognitive impairment. She also is minimum to moderate assistance of 1-2 depending on therapy, activity and time of day. She is ambulating 50 feet with a front-wheeled walker. Prior to this initial hospitalization on 01/18/2018, she was modified independent to independent with activities of daily living. Current level of function is as stated previously minimum assistance of 1-2 depending on therapy, activity and time of day. She does have needs in memory, problem solving, expression, social interaction. Estimated length of stay is 7-9 days with discharge disposition to the home setting where she has supportive and an accessible house. There have been no significant changes since the preadmission screening. PAST MEDICAL HISTORY: Unchanged from previous. PAST SURGICAL HISTORY: Unchanged from previous. ALLERGIES: No known drug allergies. SOCIAL HISTORY: No tobacco, alcohol or illicit drug use. She does have occasional alcohol on special occasions. MEDICATIONS: Have been reviewed and reconciled by myself and are available in the MAR. REVIEW OF SYSTEMS: A 14-point review of systems is done and is negative except as mentioned in HPI. It should be noted the [place] [address] HISTORY AND PHYSICAL Name: BALDOMERO CALLE Room: [address] IN [facility]#: [id number] Admission: 02/25/18 Attend Phys: Lena Abel, DO Discharge: 03/07/18 Date of : 42 Report #: [id number] cognitive memory and review of systems would be unreliable with her not present at this day. PHYSICAL EXAMINATION: GENERAL: Alert, oriented, no apparent distress. VITAL SIGNS: Reviewed and are stable. HEENT: Head atraumatic, normocephalic. Pupils equal, round, reactive. ABDOMEN: Soft, nontender, nondistended. NEUROLOGIC: Cranial nerves 2-12 are grossly intact with no focal neuro deficits, 5/5 strength in bilateral upper and lower extremities. SKIN: Warm and dry. No rashes or lesions noted. ASSESSMENT: 1. Encephalopathy. 2. Status post surgical intervention on 02/12/2018 and 02/14/2018 with ureteral stents placed as well as drainage of an abscess and a laparoscopic sigmoid colectomy done. 3. Debility with alterations in activities of daily living. 4. Multiple medical comorbidities including history of dementia, hyperlipidemia and history of trauma. PLAN: 1. Admission to inpatient rehabilitation to facilitate safe discharge home. 2. PT, OT, speech, language, case management, nursing and HIMS to make evaluations and recommendations. 3. We will team her today and we will team her next week. Anticipate a short stay. 4. Plan of care is pending. 5. Medications have been reconciled and are available in the MAR. <ELECTRONICALLY SIGNED> By: Lena Abel DO 03/26/18 [id number] Abel DO /nt
== END 2018-03-07 13:59 | disposition home health service (06) | DRG 71 ==
LOC: M.REH 10:38
PROVIDERS: Surgery; ADMIT Physical Medicine & Rehabilitation
DX: G93.49 Other encephalopathy (principal); K57.80 Diverticulitis of intestine, part unspecified, with perforation and abscess without bleeding; E46 Unspecified protein-calorie malnutrition; N13.30 Unspecified hydronephrosis; F03.91 Unspecified dementia, unspecified severity, with behavioral disturbance; R53.81 Other malaise; E03.9 Hypothyroidism, unspecified; F03.90 Unspecified dementia, unspecified severity, without behavioral disturbance, psychotic disturbance, mood disturbance, and anxiety; E78.5 Hyperlipidemia, unspecified; D64.9 Anemia, unspecified; R53.1 Weakness; Z96.0 Presence of urogenital implants; Z95.5 Presence of coronary angioplasty implant and graft; Z68.20 Body mass index [BMI] 20.0-20.9, adult; Z90.49 Acquired absence of other specified parts of digestive tract; Z98.0 Intestinal bypass and anastomosis status; Z79.899 Other long term (current) drug therapy; Z79.82 Long term (current) use of aspirin

== ENCOUNTER 2019-05-10 14:53 | Emergency (ER) | payer MEDICARE, BC ==
[~2019-05-10] VITALS: Ht 160 cm; Wt 61.2 kg
[2019-05-10] MEDS ORDERED: EC-NAPROXEN500 MG PO (16:13)
[2019-05-10 16:20] VITALS: BP 138/85
== END 2019-05-10 16:20 | disposition home or self-care (01) ==
LOC: M.ERS 14:53
DX: S61.511A Laceration without foreign body of right wrist, initial encounter (principal); S46.811A Strain of other muscles, fascia and tendons at shoulder and upper arm level, right arm, initial encounter; E78.5 Hyperlipidemia, unspecified; E03.9 Hypothyroidism, unspecified; Z95.5 Presence of coronary angioplasty implant and graft; W18.39XA Other fall on same level, initial encounter; Y93.89 Activity, other specified; Y92.89 Other specified places as the place of occurrence of the external cause; Y99.8 Other external cause status

== ENCOUNTER 2019-05-16 09:27 | Emergency (ER) | payer MEDICARE, BC ==
[~2019-05-16] VITALS: Ht 160 cm; Wt 61.2 kg
[~2019-05-16 09:27] MED LIST changes: +EC-NAPROXEN500 MG PO
[2019-05-16 09:33] VITALS: BP 151/93
== END 2019-05-16 09:41 ==
LOC: M.ERS 09:27
DX: S61.511D Laceration without foreign body of right wrist, subsequent encounter (principal); E03.9 Hypothyroidism, unspecified; E78.5 Hyperlipidemia, unspecified; Z95.2 Presence of prosthetic heart valve; Z98.890 Other specified postprocedural states; X58.XXXD Exposure to other specified factors, subsequent encounter